=== PATIENT | male | born 1955 | race Caucasian/White ===

== ENCOUNTER 2019-07-31 15:01 | Outpatient (CLI) | payer SELFPAY ==
--- NOTE | 2019-07-31 15:21 | CT_ITS ---
WS: [id number] CT CERVICAL SPINE HISTORY: POST-OPERATIVE STATE TECHNIQUE: Contiguous 2.5 mm axial imaging performed through the entire cervical spine. Sagittal and coronal reformats also performed. All CT scans at [facility] use at least one of these do se optimization techniques: automated exposure control; mA and/or kV adjustment per patient size (inc ludes targeted exams where dose is matched to clinical indication); or iterative reconstruction. DLP: 1369.92 mGycm COMPARISON: 06/14/2019 Prior posterior laminectomy defects at C4-5 and C5-6. Posterior C4-5 fusion hardware. No lucency arou nd the hardware or change in position or fracture. Atlantooccipital junction is normally aligned. Increased soft tissue surrounding the odontoid process is stable. Endplate osteophytes at all levels. 2 mm anterolisthesis of C5. Moderate disc space narro wing at C5-6. C2-C3: LEFT foraminal stenosis due to facet disease. C3-C4: Osteophytic ridging with mild central and LEFT foraminal stenosis and moderate RIGHT foraminal stenosis. C4-C5: Large posterior laminectomy defects. Moderate bilateral foraminal stenosis. C5-C6: Large posterior laminectomy defects. Severe RIGHT foraminal stenosis with moderate LEFT forami nal stenosis. C6-C7: Osteophytic ridging with bilateral foraminal stenosis, moderate. C7-T1: Normal. Calcification in the carotid arteries is unchanged. CT/CT cervical spin wo con* [id number] IMPRESSION: 1. Large laminectomy defects posteriorly at C4-5 and C5-6 with C4-5 posterior fusion. Postoperative changes remain satisfactory with no complications. 2. Multilevel foraminal central stenosis as above. Predominantly due to osteop hyte disease.
== END 2019-07-31 15:02 | disposition home or self-care (01) ==
LOC: RADWPI 15:06
PROVIDERS: Family Provider Family Medicine; PCP Family Medicine; Visit Provider Specialist
DX: Z98.890 Other specified postprocedural states (principal); Z98.1 Arthrodesis status; M48.02 Spinal stenosis, cervical region
CPT/HCPCS: 72125

== ENCOUNTER 2020-05-20 16:34 | Emergency (ER) | payer SELFPAY ==
[2020-05-20 16:37] VITALS: BP 127/73; PULSE 62; RESP 18; TEMP 37.3; O2SAT 98; BMI 20.3
== END 2020-05-20 20:16 | disposition left against medical advice (07) ==
LOC: ER 16:40
PROVIDERS: Emergency Provider Family Medicine; PCP Family Medicine
DX: Z53.21 Procedure and treatment not carried out due to patient leaving prior to being seen by health care provider (principal)
CPT/HCPCS: 99281

== ENCOUNTER 2020-10-28 16:35 | Emergency (ER) | payer SELFPAY ==
[2020-10-28 16:36] VITALS: BP 136/74; PULSE 48; RESP 18; TEMP 36.6; O2SAT 98; BMI 18.8
--- NOTE | 2020-10-28 17:27 | MRR_ITS ---
PROCEDURE INFORMATION: Exam: MR Cervical Spine Without Contrast Exam date and time: 10/28/2020 6:45 PM Age: 65 years old Clinical indication: Neck pain; Prior surgery; Surgery date: 6+ months; Surgery type: Cervical fusion w/ cage; Additional info: Cervical stenosis, hypereflexia ue, loss muscle strength TECHNIQUE: Imaging protocol: Multiplanar magnetic resonance images of the cervical spine without contrast. COMPARISON: MRI Cervical Spine w/wo [id number] 04/03/2019 8:55 AM FINDINGS: Vertebrae: Posterior fusion at C4-C5. No traumatic vertebral body height loss. Spinal cord: Long segment T2 signal hyperintense lesion of the posterior cervical spinal cord in the midline which spans mid body of C2 to the superior margin of T6 which is significantly increased in size from prior. Spinal cord diameter is preserved and unchanged from prior. Spinal epidural space: No fluid collection in the epidural space. C1-C2: No change from prior. C2-C3: Mild posterior disc osteophyte complex stable from prior. No significant canal stenosis. Severe left foraminal stenosis. No significant right foraminal stenosis. C3-C4: Moderate disc height loss. Moderate broad-based posterior disc osteophyte complex. Mild canal stenosis. Moderate bilateral foraminal stenosis. C4-C5: Interval posterior decompression at C4-C5. Posterior decompression and fusion. No disc protrusion or extrusion. No spinal canal stenosis. Neural foramen are distorted by artifact and not well assessed. C5-C6: Mild to moderate disc height loss. Mild severity broad-based posterior disc osteophyte complex. Mild severity bilateral foraminal stenosis. Minimal canal stenosis. C6-C7: Moderate severity disc height loss. Mild severity broad-based posterior disc osteophyte complex. Moderately severe bilateral foraminal stenosis. Very mild spinal canal stenosis. C7-T1: No significant finding. Other bones/joints: No fractures. C4-C5 anterolisthesis visible previously improved after surgery. Mild C5-C6 anterolisthesis unchanged from prior. Soft tissues: Prevertebral soft tissues are unremarkable. No paraspinal fluid collection. Vertebral arteries: Expected flow voids in the vertebral arteries. MR/MR cervical spin wo con* [id number] IMPRESSION: 1. Long cervical spinal cord lesion increased in size from comparison imaging. Nonspecific myelopathy changes. 2. Postsurgical findings of C4-C5 posterior decompression and posterior fusion. 3. Multilevel spondyloarthropathy; details above.
--- NOTE | 2020-10-28 17:27 | MRR_ITS ---
PROCEDURE INFORMATION: Exam: MR Lumbar Spine Without Contrast Exam date and time: 10/28/2020 6:45 PM Age: 65 years old Clinical indication: Low back pain; Patient HX: No known specific injury; Additional info: Fecal incontinence, urinary retention TECHNIQUE: Imaging protocol: Multiplanar magnetic resonance images of the lumbar spine without intravenous contrast. COMPARISON: CT Abdomen/Pelvis Renal [id number] 05/29/2019 9:51:41 PM FINDINGS: Vertebrae: Vertebral body height is preserved. Vertebral signal is unremarkable with the exception of patchy hyperintense T2, hypointense T1 signal changes of L3 and L4 surrounding a severely narrowed, eroded L3-L4 intervertebral disc. Spinal cord: Distal thoracic spinal cord is unremarkable. The cauda equina are bunched up focally at the L3-L4 intervertebral level. L1-L2: Mild facet joint arthritis. Mild bilateral foraminal stenosis. No significant disc disease. L2-L3: Moderate severity facet joint arthropathy. Mild to moderate bilateral foraminal stenosis. No significant disc disease. L3-L4: Severe disc disease. Large broad-based posterior disc bulge. Bulky severe facet joint hypertrophy. Ligamentum flavum thickening. Severe canal stenosis. Severe bilateral foraminal stenosis. L4-L5: Mild disc height loss. Disc desiccation. Mild severity broad-based posterior disc bulge. Moderate bilateral facet joint arthropathy. Ligamentum flavum thickening. Severe left foraminal stenosis. Mild to moderate right foraminal stenosis. L5-S1: Moderate severity facet joint arthropathy. No significant disc disease. No significant canal stenosis. Mild bilateral foraminal stenosis. Soft tissues: Paraspinal soft tissues are unremarkable. Retroperitoneal space: Retroperitoneal soft tissues are unremarkable. MR/MR lumbar spine wo con* [id number] IMPRESSION: 1. Severe chronic disc disease of L3-L4. Disc disease and facet joint arthritis contributes to severe spinal canal stenosis and severe foraminal stenosis at this level. There is bunching up of the cauda equina this level secondary to the stenosis. 2. Additional multilevel spondyloarthropathy changes as detailed above which are less severe.
--- NOTE | 2020-10-28 17:32 | ED_ITS ---
Documented by User: Wale Carl DO 11/01/20 16:00 HPI - Back Pain/Injury General: Chief Complaint: Back Pain/Injury Stated Complaint: L HAND/LEG NUMBNESS, R SIDE PAIN, STATES CHRONIC Time Seen by Provider: 10/28/20 16:56 History of Present Illness: HPI Narrative: 65-year-old male with a history of cervical stenosis he previously had a surgery on his neck sounds like he had a fusion and discectomy. This was approximately a year and a half ago since then he says he still continue to have pain he is noticing today some right-sided flank pain as well as some mid back pain and arm weakness. He is not really having any abdominal pain has legs are very weak he is able to raise them while sitting in the chair. He reports fecal incontinence at times. He uses hydrocodone for pain but that has not been controlling his pain recently. MD elicited complaint: back pain (Neck pain) Pertinent past history: prior back pain (Previous cervical laminectomy and fus ion) Timing: constant Severity: moderate Quality: aching and tingling Location: lumbar spine Radiation: other (Bilateral upper and lower extremities) Associated symptoms: Reports difficulty walking, fatigue, nausea, tingling/numbness/burning and weakness; Deny abdominal pain, arthralgias, chills, change in bowel habits, dysuria, fecal incontinence, fever(s), hematuria, myalgias, numbness, syncope, urinary frequency, urinary urgency or vomiting Work related injury: No Review of Systems Const: Reports: fatigue; Denies: chills ENMT: Denies: throat pain, ear or mastoid pain, nasal discharge or nasal congestion Card: Denies: syncope Resp: Denies: dyspnea, productive cough or non-productive cough GI: Reports: nausea; Denies: abdominal pain, fecal incontinence or change in bowel habits : Denies: dysuria, urinary urgency or hematuria Skin/Breast: Denies: rash or pruritus Neuro: Reports: difficulty walking PFSH ED PFSH: Family History Mother Diabetes Cancer Thyroid and Espohageal Arthritis Social History Smoking and tobacco status: current every day smoker Alcohol intake: never Lives independently: Yes Household members: none Marital status: Legally History of recent travel: No Physical Exam Const: COMMON NORMALS: no acute distress GENERAL APPEARANCE: cooperative and comfortable ORIENTATION/CONSCIOUSNESS: Yes awake, Yes oriented to person, Yes oriented to place and Yes oriented to time HENMT: COMMON NORMALS: normocephalic, atraumatic and hearing grossly normal bilaterally HEAD & SCALP: normocephalic and atraumatic Neck/C-Spine: COMMON NORMALS: no JVD Resp: COMMON NORMALS: normal respiratory effort, No retractions, No use of accessory muscles and clear to auscultation bilaterally AUSCULTATION: clear to auscultation bilaterally Cardio: COMMON NORMALS: no JVD, regular rate, regular rhythm and No murmurs present (Cardio) RATE: regular rate RHYTHM: regular rhythm GI: COMMON NORMALS: Soft to palpation and No hepatosplenomegaly present AUSCULTATION: Yes normoactive bowel sounds PALPATION: Yes Soft to palpation, No Tenderness to palpation present (GI), No Guarding due to palpation present (GI) and Yes No hepatosplenomegaly present Extremity: COMMON NORMALS: normal to inspection, capillary refill normal, no clubbing, cyanosis or edema, no calf tenderness and no pedal edema Neuro: SENSORIUM/ORIENTATION: Yes oriented to person, Yes oriented to place and Yes oriented to time Skin: COMMON NORMALS: no rashes or lesions noted GENERAL SKIN EXAM: no rashes or lesions noted Course Vital Signs: Vital signs: Vital Signs Temperature 97.8 F 10/28/20 16:36 Pulse Rate 50 L 10/28/20 20:23 Respiratory Rate 19 H 10/28/20 20:23 Blood Pressure 136/74 10/28/20 16:36 Pulse Oximetry 97 10/28/20 20:23 MDM - Back Pain/Injury MDM Narrative: Medical decision making narrative: Care turned over to Dr. Sharif at change of shift. See his notes for final diagnosis and disposition MRIs are pending. Lab Data: Labs: Lab Results 10/28/20 10/28/20 10/28/20 Range/Units 16:56 16:56 18:23 WBC 11.4 H (4.0-10.0) 10^3/ uL RBC 4.51 (4.1-5.3) 10^6/u L Hgb 14.2 (11.7-16.6) g/dL Hct 42.0 (42.0-52.0) % MCV 93.1 (80-94) fL MCH 31.5 (28.0-34.0) pg MCHC 33.8 (30.0-36.0) g/dL RDW 12.3 (12.1-15.1) % Plt Count 310 (130-400) 10^3/c mm MPV 9.7 (7.4-10.4) fL Neut % (Auto) 48.4 % Lymph % (Auto) 42.6 % Gage % (Auto) 5.7 % Eos % (Auto) 2.5 % Baso % (Auto) 0.6 % Neut # (Auto) 5.51 (1.8-7.7) 10^3/u L Lymph # (Auto) 4.9 H (0.8-4.8) 10^3/u L Gage # (Auto) 0.7 (0.2-0.9) 10^3/u L Eos # (Auto) 0.3 (0.0-0.8) 10^3/u L Baso # (Auto) 0.1 (0.0-0.1) 10^3/u L Nucleated RBC % (a uto) 0 % Nucleated RBCs # 0.0 /100WBC Sodium 138 (136-145) mmol/L Potassium 3.4 L (3.5-5.1) mmol/L Chloride 98 (98-107) mmol/L Carbon Dioxide 30 H (22-29) mmol/L Anion Gap 13.4 (5-19) BUN 3 L (8-23) mg/dL Creatinine 0.6 L (0.7-1.2) mg/dL GFR Calculation 136.1 H (90-130) mL/min Glucose 117 H (65-115) mg/dL Calculated Osmolal ity 284 L (285-295) mOsm/k g Calcium 8.6 (8.5-10.5) mg/dL Total Bilirubin 0.4 (0.15-1.2) mg/dL AST 17 (0-40) U/L ALT 11 (0-41) U/L Alkaline Phosphata se 86 (40-130) IU/L Total Protein 6.3 L (6.6-8.7) g/dL Albumin 3.9 (3.5-5.2) g/dL Globulin 2.4 (1.3-4.6) g/dL Urine Color Straw (Yellow) Urine Appearance Clear (CLEAR) Urine pH 7 (5-7) Ur Specific Gravit y 1.010 (1.005-1.030) Urine Protein Neg (Negative) Urine Glucose (UA) Norm (Normal) Urine Ketones Negative (Negative) Urine Blood Neg (Negative) Urine Nitrate Negative (Negative) Urine Bilirubin Neg (Negative) Urine Urobilinogen Norm (Negative) mg/dL Ur Leukocyte Judith ase Negative (Negative) SARS-CoV-2 Ag (Rap id) (Negative) 10/28/20 Range/Units 21:15 WBC (4.0-10.0) 10^3/ uL RBC (4.1-5.3) 10^6/u L Hgb (11.7-16.6) g/dL Hct (42.0-52.0) % MCV (80-94) fL MCH (28.0-34.0) pg MCHC (30.0-36.0) g/dL RDW (12.1-15.1) % Plt Count (130-400) 10^3/c mm MPV (7.4-10.4) fL Neut % (Auto) % Lymph % (Auto) % Gage % (Auto) % Eos % (Auto) % Baso % (Auto) % Neut # (Auto) (1.8-7.7) 10^3/u L Lymph # (Auto) (0.8-4.8) 10^3/u L Gage # (Auto) (0.2-0.9) 10^3/u L Eos # (Auto) (0.0-0.8) 10^3/u L Baso # (Auto) (0.0-0.1) 10^3/u L Nucleated RBC % (a uto) % Nucleated RBCs # /100WBC Sodium (136-145) mmol/L Potassium (3.5-5.1) mmol/L Chloride (98-107) mmol/L Carbon Dioxide (22-29) mmol/L Anion Gap (5-19) BUN (8-23) mg/dL Creatinine (0.7-1.2) mg/dL GFR Calculation (90-130) mL/min Glucose (65-115) mg/dL Calculated Osmolal ity (285-295) mOsm/k g Calcium (8.5-10.5) mg/dL Total Bilirubin (0.15-1.2) mg/dL AST (0-40) U/L ALT (0-41) U/L Alkaline Phosphata se (40-130) IU/L Total Protein (6.6-8.7) g/dL Albumin (3.5-5.2) g/dL Globulin (1.3-4.6) g/dL Urine Color (Yellow) Urine Appearance (CLEAR) Urine pH (5-7) Ur Specific Gravit y (1.005-1.030) Urine Protein (Negative) Urine Glucose (UA) (Normal) Urine Ketones (Negative) Urine Blood (Negative) Urine Nitrate (Negative) Urine Bilirubin (Negative) Urine Urobilinogen (Negative) mg/dL Ur Leukocyte Judith ase (Negative) SARS-CoV-2 Ag (Rap id) Negative (Negative) Discharge Plan Discharge Patient Disposition: Home Clinical Impression: Incomplete spinal cord lesion Thoracic back pain Qualifiers: Chronicity: chronic Condition: Stable Prescriptions: New Reglan 10 mg tablet 10 mg PO Q6H PRN (Reason: nausea and vomiting) Qty: 20 RF: 2 diclofenac sodium 75 mg tablet,delayed release (DR/EC) 75 mg PO BID PRN (Reason: pain) Qty: 14 RF: 1 No Action Aspir-81 81 mg Tablet,Delayed Release (Dr/Ec) 81 mg PO DAILY RF: 0 ibuprofen 200 mg Tablet 400 mg PO PRN RF: 0 omeprazole 20 mg Capsule,Delayed Release(Dr/Ec) 20 mg PO DAILY RF: 0 Fish Oil Capsule 1 cap PO BID RF: 0 red yeast rice 600 mg Tablet 600 mg PO BID RF: 0 Emergen-C 500 mg Tablet,Chewable 1 tab PO DAILY RF: 0 Philip See Rx Instructions .ROUTE .COMPLEX RF: 0 Discharge Orders: Discharge ED (Routine); Ordered 10/28/20 Ordered By: Nelson Sharif Referrals: Marquise Hale DO [Physician] - 1-3 days (call for appointment time to follow up spinal cord lesion. If unable to see him, follow up with Dr. Hester at [facility].) Discharge Diet: Usual diet Discharge Activity: Resume usual activity Patient Instructions: Opioid Safety Coding Level of Care Code ED [place] for Chg Fwd Exam Comprehensive Documented by User: Nelson Sharif MD 10/28/20 22:23 HPI - Back Pain/Injury General: Chief Complaint: Back Pain/Injury Stated Complaint: L HAND/LEG NUMBNESS, R SIDE PAIN, STATES CHRONIC Time Seen by Provider: 10/28/20 16:56 History of Present Illness: Associated symptoms: Reports change in bowel habits and fecal incontinence; Deny abdominal pain Review of Systems Eyes: Denies: change in vision ENMT: Denies: throat pain Card: Denies: chest pain Resp: Denies: dyspnea GI: Reports: fecal incontinence and change in bowel habits; Denies: abdominal pain : Reports: flank pain and urinary incontinence Musc: Reports: neck pain, back pain, muscle weakness and decrease in muscle mass Skin/Breast: Denies: rash Neuro: Reports: weakness in extremities Psych: Denies: anxiety Herbert/Lymph: Denies: easy bruising or tender lymph nodes All/Imm: Denies: urticaria or throat swelling PFSH ED PFSH: Family History Mother Diabetes Cancer Thyroid and Espohageal Arthritis Social History Smoking and tobacco status: current every day smoker Alcohol intake: never Lives independently: Yes Household members: none Marital status: Legally History of recent travel: No Physical Exam Narrative: EXAM NARRATIVE: upper extrem weakness Const: COMMON NORMALS: no acute distress, patient oriented x3 and alert EXAM LIMITATIONS: no altered mental status ORIENTATION/CONSCIOUSNESS: Yes oriented to person HENMT: FACE & SINUS: normal facial exam THROAT: posterior oropharynx normal Eye: COMMON NORMALS: Equal, round and reactive pupils present PUPIL: Yes Equal, round and reactive pupils present Neck/C-Spine: COMMON NORMALS: negative for no lymphadenopathy Lymph: LYMPHATIC: no lymphadenopathy noted Chest: COMMONS NORMALS: normal inspection of the chest Resp: COMMON NORMALS: normal respiratory effort GI: INSPECTION: Yes normal to inspection Back/Pelvis: THORACIC SPINE/UPPER BACK: Yes normal to inspection Extremity: NARRATIVE EXTREMITY EXAM: atrophy Neuro: COMMON NORMALS: patient oriented x3 SENSORIUM/ORIENTATION: Yes alert, Yes oriented to person and Yes other (atrophy and contractures to upper extems bilat) Psych: COMMON NORMALS: mental status grossly normal Skin: COMMON NORMALS: no rashes or lesions noted GENERAL SKIN EXAM: no rashes or lesions noted Course Vital Signs: Vital signs: Vital Signs Temperature 97.8 F 10/28/20 16:36 Pulse Rate 50 L 10/28/20 20:23 Respiratory Rate 19 H 10/28/20 20:23 Blood Pressure 136/74 10/28/20 16:36 Pulse Oximetry 97 10/28/20 20:23 MDM - Back Pain/Injury MDM Narrative: Medical decision making narrative: I reviewed the case with the patient. I have also reviewed his MRI with him. I encouraged the patient to follow-up with neurosurgery as soon as possible. I offered patient to be transferred to [place] for evaluation tonight. However, patient declined transfer tonight and wants to follow-up in the clinic. I expressed my concern that this needs to be done soon as possible. I have paged on-call neurosurgery at [place]. Await their return follow-up instructions. 2135: d/w neurosurgeon dr. hester at [facility] in [place] . He suggested that patient follow-up with Dr. Hale at this hospital. He states the patient does not need to be transferred to [place] at this time. He states this is a non emergent condition that can be taken care of as an outpatient at this hospital I have discussed this with the patient and case management will arrange follow-up with Dr. Hale tomorrow. Differential Diagnosis: Differential diagnosis back pain/injury: Likely lumbar radiculopathy and sciatica Medical Records: Attestation: I reviewed the patient's medical records. Lab Data: Attestation: I reviewed the patient's lab results. Labs: Lab Results 10/28/20 10/28/20 10/28/20 Range/Units 16:56 16:56 18:23 WBC 11.4 H (4.0-10.0) 10^3/ uL RBC 4.51 (4.1-5.3) 10^6/u L Hgb 14.2 (11.7-16.6) g/dL Hct 42.0 (42.0-52.0) % MCV 93.1 (80-94) fL MCH 31.5 (28.0-34.0) pg MCHC 33.8 (30.0-36.0) g/dL RDW 12.3 (12.1-15.1) % Plt Count 310 (130-400) 10^3/c mm MPV 9.7 (7.4-10.4) fL Neut % (Auto) 48.4 % Lymph % (Auto) 42.6 % Gage % (Auto) 5.7 % Eos % (Auto) 2.5 % Baso % (Auto) 0.6 % Neut # (Auto) 5.51 (1.8-7.7) 10^3/u L Lymph # (Auto) 4.9 H (0.8-4.8) 10^3/u L Gage # (Auto) 0.7 (0.2-0.9) 10^3/u L Eos # (Auto) 0.3 (0.0-0.8) 10^3/u L Baso # (Auto) 0.1 (0.0-0.1) 10^3/u L Nucleated RBC % (a uto) 0 % Nucleated RBCs # 0.0 /100WBC Sodium 138 (136-145) mmol/L Potassium 3.4 L (3.5-5.1) mmol/L Chloride 98 (98-107) mmol/L Carbon Dioxide 30 H (22-29) mmol/L Anion Gap 13.4 (5-19) BUN 3 L (8-23) mg/dL Creatinine 0.6 L (0.7-1.2) mg/dL GFR Calculation 136.1 H (90-130) mL/min Glucose 117 H (65-115) mg/dL Calculated Osmolal ity 284 L (285-295) mOsm/k g Calcium 8.6 (8.5-10.5) mg/dL Total Bilirubin 0.4 (0.15-1.2) mg/dL AST 17 (0-40) U/L ALT 11 (0-41) U/L Alkaline Phosphata se 86 (40-130) IU/L Total Protein 6.3 L (6.6-8.7) g/dL Albumin 3.9 (3.5-5.2) g/dL Globulin 2.4 (1.3-4.6) g/dL Urine Color Straw (Yellow) Urine Appearance Clear (CLEAR) Urine pH 7 (5-7) Ur Specific Gravit y 1.010 (1.005-1.030) Urine Protein Neg (Negative) Urine Glucose (UA) Norm (Normal) Urine Ketones Negative (Negative) Urine Blood Neg (Negative) Urine Nitrate Negative (Negative) Urine Bilirubin Neg (Negative) Urine Urobilinogen Norm (Negative) mg/dL Ur Leukocyte Judith ase Negative (Negative) SARS-CoV-2 Ag (Rap id) (Negative) 10/28/20 Range/Units 21:15 WBC (4.0-10.0) 10^3/ uL RBC (4.1-5.3) 10^6/u L Hgb (11.7-16.6) g/dL Hct (42.0-52.0) % MCV (80-94) fL MCH (28.0-34.0) pg MCHC (30.0-36.0) g/dL RDW (12.1-15.1) % Plt Count (130-400) 10^3/c mm MPV (7.4-10.4) fL Neut % (Auto) % Lymph % (Auto) % Gage % (Auto) % Eos % (Auto) % Baso % (Auto) % Neut # (Auto) (1.8-7.7) 10^3/u L Lymph # (Auto) (0.8-4.8) 10^3/u L Gage # (Auto) (0.2-0.9) 10^3/u L Eos # (Auto) (0.0-0.8) 10^3/u L Baso # (Auto) (0.0-0.1) 10^3/u L Nucleated RBC % (a uto) % Nucleated RBCs # /100WBC Sodium (136-145) mmol/L Potassium (3.5-5.1) mmol/L Chloride (98-107) mmol/L Carbon Dioxide (22-29) mmol/L Anion Gap (5-19) BUN (8-23) mg/dL Creatinine (0.7-1.2) mg/dL GFR Calculation (90-130) mL/min Glucose (65-115) mg/dL Calculated Osmolal ity (285-295) mOsm/k g Calcium (8.5-10.5) mg/dL Total Bilirubin (0.15-1.2) mg/dL AST (0-40) U/L ALT (0-41) U/L Alkaline Phosphata se (40-130) IU/L Total Protein (6.6-8.7) g/dL Albumin (3.5-5.2) g/dL Globulin (1.3-4.6) g/dL Urine Color (Yellow) Urine Appearance (CLEAR) Urine pH (5-7) Ur Specific Gravit y (1.005-1.030) Urine Protein (Negative) Urine Glucose (UA) (Normal) Urine Ketones (Negative) Urine Blood (Negative) Urine Nitrate (Negative) Urine Bilirubin (Negative) Urine Urobilinogen (Negative) mg/dL Ur Leukocyte Judith ase (Negative) SARS-CoV-2 Ag (Rap id) Negative (Negative) Imaging Data^: Other Imaging: Radiologist's impression: [place] [address] CT Scan Report Signed Patient: Bowen Diaz #: [id number] : 8Acct#:[id number] Age/Sex: 63 / MADM Date: 07/31/19 Loc: RADWPIRoom/Bed: Attending Dr: Markos Arteaga MD Ordering Provider/Ordering MD: Markos Arteaga Date of Service: 07/31/19 Procedure(s): CT cervical spin wo con* [id number] Accession Number(s): [id number] Report Number: [id number] WS: [id number] CT CERVICAL SPINE HISTORY: POST-OPERATIVE STATE TECHNIQUE: Contiguous 2.5 mm axial imaging performed through the entire cervical spine. Sagittal and coronal reformats also performed. All CT scans at [facility] use at least one of these dose optimization techniques: automated exposure control; mA and/or kV adjustment per patient size (includes targeted exams where dose is matched to clinical indication); or iterative reconstruction. DLP: 1369.92 mGycm COMPARISON: 06/14/2019 Prior posterior laminectomy defects at C4-5 and C5-6. Posterior C4-5 fusion h ardware. No lucency around the hardware or change in position or fracture. Atlantooccipital junction is normally aligned. Increased soft tissue surrounding the odontoid process is stable. Endplate osteophytes at all levels. 2 mm anterolisthesis of C5. Moderate disc space narrowing at C5-6. C2-C3: LEFT foraminal stenosis due to facet disease. C3-C4: Osteophytic ridging with mild central and LEFT foraminal stenosis and moderate RIGHT foraminal stenosis. C4-C5: Large posterior laminectomy defects. Moderate bilateral foraminal stenosis. C5-C6: Large posterior laminectomy defects. Severe RIGHT foraminal stenosis with moderate LEFT foraminal stenosis. C6-C7: Osteophytic ridging with bilateral foraminal stenosis, moderate. C7-T1: Normal. Calcification in the carotid arteries is unchanged. CT/CT cervical spin wo con* [id number] IMPRESSION: 1. Large laminectomy defects posteriorly at C4-5 and C5-6 with C4-5 posterior fusion. Postoperative changes remain satisfactory with no complications. 2. Multilevel foraminal central stenosis as above. Predominantly due to osteophyte disease. Dictated By:Samantha Martin DO Signed By:Samantha Martin DOSigned Date/Time:07/31/19 5762 MRI: Attestation: I personally reviewed and interpreted this imaging study as follows: Radiologist's impression: -m-r-i- -o-f- -w-m-g-i-n-e-:- - - -l-o-n-g- -k-f-e-v-i-c-a-l- -f-v-m-n-a-l- -c-o-r-d- -o-p-r-i-o-n- -g-y-n-u-a-r-s-e-d- -i-n- -s-i-z-e- -f-r-o-m- -h-a-u-e-m-f-i-s-o-n- -s-w-b-g-i-n-g-.- -j-f-p-b-r-v-c-i-f-i-c- -j-r-z-b-u-b-a-t-h-y- -h-e-y-n-g-e-s-.-.- - - -p-o-s-t- -z-v-s-g-i-c-a-l- -t-d-d-d-i-n-g-s- -o-f- -c-4----5- -m-g-u-d-s-f-i-o-r- -w-h-v-c-q-o-n-q-t-s-i-o-n- -a-n-d- -r-t-i-b-x-j-i-o--r- -t-h-d-i-o-n-.- - - -n-j-h-v-z-j-e-v-e-l- -v-v-l-y-k-c-v-d-w-c-s-w-x-a-g-a-t-h-y-.- - - -s-e-e- -t-b-x-o-r-t-.- -M-R-I- -f-l-x-o-r-t- -I-a-o-r-k-s- -J-r-t-k-u-l-c-a-r-e- -1-1-0-0- -S-h-i-t-u-c-k-y- -A-v-e-.- -W-e-s-t- -K-t-e-i-n-s-,- -M-O- -6-5-7-7-5- -J-h-x-n-e-t-i-c- -Q-q-q-r-g-k-n-c-e- -Y-z-o-o-r-t- -J-p-r-n-e-d- -V-q-v-i-e-n-t-:- -T-i-j-l-t-o-n-,-R-x-b-u-e-l- -D-U-n-i-t- -#-:- -O-M-0-0- -9-7-2-9-5-9- -D-O-B-:- -0-1-/-2-6-/-9-1-3-8-A-c-c-t-#-:-W-D-9-2-6-3-6-0-4-5-2-3- -A-g-e-/-S-e-x-:- -6-3- -/- -M-A-D-M- -D-a-t-e-:- -0-4-/-1-9-/-2-1- -L-o-c-:- -G-A-X-o-o-m-/-B-e-d-:- -V-z-m-q-d-y-i-n-g- -D-r-:- -R-r-g-e-r-i-n-g- -G-w-r-v-i-d-e-r-/-T-j-d-e-r-i-n-g- -M-D-:- -R-n-t-s-t-m-a-n-,-S-u-a-t-i-s- -L- -D-O- -D-a-t-e- -o-f- -W-n-u-v-i-c-e-:- -0-4-/-1-9-/-2-1- -I-l-s-f-i-r-u-r-e-(-s-)-:- -M-R- -l-n-m-b-a-r- -s-p-i-n-e- -w-o- -c-o-n-*- -7-2-1-4-8- -T-n-d-n-j-g-i-o-n- -S-b-l-b-e-r-(-s-)-:- -D-7-1-2-8-0-4-8-6-3-3-O-Z-A- -W-x-j-o-r-t- -X-o-c-b-e-r-:- -3-9-0-9----0-0-2-8-3- -W-L-U-O-S-B-U-R-E- -E-M-E-T-Q-G-A-T-I-O-N-:- -E-x-a-m-:- -M-R- -T-q-a-b-a-r- -S-p-i-n-e- -T-l-o-h-o-u-t- -M-c-h-t-r-a-s-t- -E-x-a-m- -d-a-t-e- -a-n-d- -t-i-m-e-:- -4-/-1-9-/-2-0-2-1- -6-:-4-5- -P-M- -A-g-e-:- -6-3- -y-e-a-r-s- -o-l-d- -L-l-e-n-i-c-a-l- -r-i-n-s-s-m-t-i-o-n-:- -L-o-w- -b-a-c-k- -p-a-i-n-;- -Y-e-x-i-e-n-t- -H-X-:- -N-o- -k-n-o-w-n- -y-k-f-c-i-f-i-c- -f-a-q-u-r-y-;- -K-u-e-a-j-j-o-n-a-l- -i-n-f-o-:- -F-e-c-a-l- -g-h-c-b-f-v-x-i-i-n-c-e-,- -x-s-b-n-a-r-y- -l-n-u-q-y-c-i-o-n- -I-D-K-Q-R-K-Q-U-E-:- -A-k-u-g-i-n-g- -o-n-y-t-o-c-o-l-:- -Q-a-b-d-h-f-l-a-n-a-r- -e-j-g-n-e-t-i-c- -z-q-y-d-k-n-n-c-e- -f-j-r-g-e-s- -o-f- -t-h-e- -p-v-x-b-a-r- -s-p-i-n-e- -f-q-h-h-o-u-t- -r-w-l-c-f-w-e-n-o-u-s- -d-a-y-t-r-a-s-t-.- -O-Q-R-K-H-U-I-S-O-N-:- -C-T- -X-g-u-o-m-e-n-/-D-b-w-v-i-s- -R-e-n-a-l- -7-4-1-7-6- -1-1-/-1-8-/-2-0-1-9- -9-:-5-1-:-4-1- -P-M- -L-C-V-D-I-N-G-S-:- -B-a-f-t-u-q-r-a-e-:- -G-m-p-b-l-i-r-a-l- -b-o-d-y- -o-y-t-g-h-t- -i-s- -w-b-j-u-v-c-v-e-d-.- -A-b-l-m-v-e-r-a-l- -q-g-w-n-a-l- -i-s- -e-f-q-p-h-h-c-r-l-b-l-e- -w-i-t-h- -t-h-e- -f-a-h-s-i-v-i-o-n- -o-f- -h-j-j-c-h-y- -u-u-v-r-a-c-e-v-d-n-s-e- -T-2-,- -c-r-s-r-v-c-t-e-n-s-e- -T-1- -m-w-g-n-a-l- -l-p-m-n-g-e-s- -o-f- -L-3- -a-n-d- -L-4- -u-o-g-i-l-o-n-d-i-n-g- -a- -i-n-q-e-r-e-l-y- -t-j-h-r-o-w-e-d-,- -j-z-j-d-e-d- -L-3----L-4- -i-n-s-f-y-r-d-c-g-e-b-r-a-l- -d-i-s-c-.- -U-d-b-n-a-l- -c-o-r-d-:- -B-v-u-t-a-l- -l-c-c-r-a-c-i-c- -s--p-i-n-a-l- -c-o-r-d- -i-s- -h-c-m-u-g-h-z-f-n-b-l-e-.- -T-h-e- -c-a-u-d-a- -q-b-v-i-n-a- -a-r-e- -c-s-d-c-h-e-d- -u-p- -t-v-i-a-l-l-y- -a-t- -t-h-e- -L-3----L-4- -n-g-y-h-b-v-z-y-m-e-b-r-a-l- -l-e-v-e-l-.- -L-1----L-2-:- -M-i-l-d- -f-a-c-e-t- -j-o-i-n-t- -a-b-m-v-m-w-t-i-s-.- -M-i-l-d- -z-t-c-l-c-a-r-a-l- -w-y-x-y-d-e-n-a-l- -z-q-o-n-o-s-i-s-.- -N-o- -s-p-u-a-g-p-i-c-a-n-t- -d-i-s-c- -h-r-g-e-a-s-e--.- -L-2----L-3-:- -E-r-o-e-r-a-t-e- -q-s-u-e-r-i-t-y- -f-a-c-e-t- -j-o-i-n-t- -l-o-l-f-y-h-p-a-t-h-y-.- -M-i-l-d- -t-o- -l-e-p-e-r-a-t-e- -k-x-y-p-w-l-r-a-l- -d-o-x-p-c-w-n-a-l- -m-r-i-n-o-s-i-s-.- -N-o- -t-p-y-o-f-c-i-c-a-n-t- -d-i-s-c- -j-e-g-e-a-s-e-.- -L-3----L-4-:- -M-k-l-e-r-e- -d-i-s-c- -a-f-q-e-a-s-e-.- -L-a-r-g-e- -b-q-z-a-d----b-a-s-e-d- -v-p-i-g-q-y-i-o-r- -d-i-s-c- -b-u-l-g-e-.- -B-u-l-k- -y- -b-a-f-e-r-e- -f-a-c-e-t- -j-o-i-n-t- -j-w-z-f-i-s-r-o-p-h-y-.- -P-g-y-f-q-n-n-t-u-m- -s-f-d-v-u-m- -u-f-c-p-s-v-n-i-n-g-.- -J-u-w-e-r-e- -c-a-n-a-l- -q-l-f-n-o-s-i-s-.- -P-g-e-e-r-e- -m-t-c-j-v-c-r-a-l- -q-g-d-h-m-x-n-a-l- -e-v-p-n-o-s-i-s-.- -L-4----L-5-:- -M-i-l-d- -d-i-s-c- -r-b-k-g-h-t- -l-o-s-s-.- -D-i-s-c- -c-t-g-g-n-y-a-t-i-o-n-.- -M-i-l-d- -b-f-n-e-r-i-t-y- -l-z-v-a-d----b-a-s-e-d- -p-o--u-e-x-r-i-o-r- -d-i-s-c- -b-u-l-g-e-.- -W-m-h-e-r-a-t-e- -k-m-y-g-f-g-r-a-l- -f-a-c-e-t- -j-o-i-n-t- -c-n-j-t-c-r-p-a-t-h-y-.- -D-p-i-q-n-e-n-t-u-m- -l-m-r-v-u-m- -x-a-p-x-j-v-n-i-n-g-.- -L-a-h-e-r-e- -l-e-f-t- -m-s-n-l-h-k-n-a-l- -m-x-d-n-o-s-i-s-.- -M-i-l-d- -t-o- -o-x-x-e-r-a-t-e- -r-i-g-h-t- -c-n-e-b-y-w-n-a-l- -a-f-x-n-o-s-i-s-.- -L-5----S-1-:- -L-i-h-e-r-a-t-e- -g-z-u-e-r-i-t-y- -f-a-c-e-t- -j-o-i-n-t- -p-v-b-q-l-j-p-a-t-h-y-.- -N-o- -x-y-r-e-u-q-i-c-a-n-t- -d-i-s-c- -m-e-k-e-a-s-e-.- -N-o- -u-b-f-t-y-j-i-c-a-n-t- -c-a-n-a-l- -z-c-l-n-o-s-i-s-.- -M-i-l-d- -i-t-c-b-w-w-r-a-l- -u-p-p-b-q-q-n-a-l- -h-p-k-n-o-s-i-s-.- -S-o-f-t- -q-b-p-s-u-e-s-:- -B-z-h-i-r-f-i-n-a-l- -s-o-f-t- -f-m-i-s-u-e-s- -a-r-e- -r-k-r-p-o-b-j-f-o-b-l-e-.- -D-z-m-b-d-o-z-v-v-m-o-n-e-a-l- -s-p-a-c-e-:- -K-i-j-q-n-f--w-a-m-u-t-y-e-a-l- -s-o-f-t- -g-y-h-s-u-e-s- -a-r-e- -e-a-e-b-t-x-s-o-x-b-l-e-.- -W-S-U-K-V-R-I-O-N- -#-:- -B-6-6-2-6-9-8-5-7-3-3-O-Z-A- -M-R-/-M-R- -x-e-d-b-a-r- -s-p-i-n-e- -w-o- -c-o-n-*- -7-2-1-4-8- -N-F-M-X-T-M-S-I-O-N-:- -1-.- -E-m-x-e-r-e- -x-o-s-o-n-i-c- -d-i-s-c- -r-k-l-e-a-s-e- -o-f- -L-3--- -L-4-.- -D-i-s-c- -i-k-y-e-a-s-e- -a-n-d- -f-a-c-e-t- -j-o-i-n-t- -v-n-c-k-f-e-t-i-s- -o-h-k-t--y-k-i-u-t-e-s- -t-o- -v-g-n-e-r-e- -w-f-v-n-a-l- -c-a-n-a-l- -e-i-q-n-o-s-i-s- -a-n-d- -i-p-x-e-r-e- -s-o-p-g-r-y-n-a-l- -e-n-e-n-o-s-i-s- -a-t- -t-h-i-s- -l-e-v-e-l-.- -T-h-e-r-e- -i-s- -r-a-m-c-h-i-n-g- -u-p- -o-f- -t-h-e- -c-a-u-d-a- -i-t-y-i-n-a- -t-h-i-s- -l-e-v-e-l- -e-o-s-z-c-c-a-r-y- -t-o- -t-h-e- -k-m-b-n-o-s-i-s-.- -2-.- -X-n-h-p-z-f-o-n-a-l- -o-q-g-p-l-d-e-v-e-l- -p-w-o-i-g-b-l-o-a-r-t- -k-j-r-p-a-t-h-y- -a-c-d-n-g-e-s- -a-s- -f-l-r-a-i-l-e-d- -a-b-o-v-e- -w-h-i-c-h- -a-r-e- -l-e-s-s- -t-i-u-e-r-e-.- -U-a-u-t-a-t-e-d- -B-y-:-F-r-a-m-e-,-K-e-v-i-n- -V-e-e-n-e-d- -B-y-:-F-r-a-m-e-,-S-f-n-s-w-E-i-g-n-e-d- -D-a-t-e-/-T-i-m-e-:-0-4-/-1-9-/-2-1- -2-0-9- -C-h-a-r-t- -D-y-s-w-e-r- -V-b-k-m-a-r-y- -B-a-m-g-e-t- -d-a-t-a- -f-o-r- -0-4-/-1-9-/-2-1- -(-R-E-G- -E-R-)- -N-o- -D-a-t-a- -t-o- -V-f-d-p-l-a-y- -C-l-z-t-e-d- -E-h-a-h-l-d-i-n-t- -L- -H-A-N-D-/-L-E-G- -S-K-Y-B-N-E-S-S-,- -R- -S-I-D-E- -P-A-I-N-,- -H-N-O-T-E-S- -B-O-G-O-N-I-C- -C-h-i-e-f- -W-j-u-k-p-d-i-n-t- -B-a-c-k- -P-a-i-n-/-Y-j-d-u-r-y- -C-g-g-l-y-c-i-o-n- -E-s-n-i-v-a-l- -D-a-t-e-/-T-i-m-e- -0-4-/-1-9-/-2-1- -1-6-:-3-5- -L-l-t-i-v-a-l- -M-o-d-e- -M-q-n-k----I-n- -H-h-i-a-g-e-d- -A-t- -0-4-/-1-9-/-2--1- -1-6-:-3-6- -E-D- -Q-o-n-a-t-i-o-n- -E-k-a-j-n-l-n-c-y- -X-m-o-l-s-c-m-e-n-t- -A-r-e-a-/-S-m-g-t-i-o-n- -E-D- -1-2- -R-o-t-t-i-o-n- -1- -P-q-b-t-e-d- -D-k-g-b-x-z-i-n-t- -L- -H-A-N-D-/-L-E-G- -P-Y-P-B-N-E-S-S-,- -R- -S-I-D-E- -P-A-I-N-,- -E-B-A-T-E-S- -K-B-N-O-N-I-C- -C-h-i-e-f- -E-j-v-y-h-t-i-n-t- -B-a-c-k- -P-a-i-n-/-I-o-f-u-r-y- -N-f-r-a-s-i-v-e- -L-i-n-e- -D-e-r-s-r-c-n-a-n-c-e- -0-4-/-1-9--/-2-1- -2-0-:-2-3- -V-i-t-a-l- -S-i-g-n-s- -0-4-/--9-/-2-1- -2-0-:-2-3- -A-d-u-i-e-n-t- -C-i-r-e-t-y- -C-h-e-c-k- -0-4-/-1-9-/-2-1- -2-0-:-0-2- -D-w-v-m-k-f-e-n-t- -R-i-s-k- -Q-p-o-u-r-d-m-e-n-t- -0-4-/--9-/-2-1- -2-0-:-0-2- -F-u-b-h-r-a-s-i-o-n- -N-z-v-i-n-g- -T-o-o-l- -0-4-/-1-9-/-2-1- -2-0-:-0-2- -P-a-i-n- -T-w-t-b-m-r-h-m-h-e-n-t- -0-4-/-1-9-/-2-1- -2-0-:-0-1- -E-D- -T-m-h-i-e-n-t- -B-v-t-n--d-i-n-g- -0-4-/-1-9-/-2- -2-0-:-0-1- -I-V- -I-b-o-u-v-h-i-o-n- -0-4-/--9-/-08-12- -7-:-0-0- -K-d-g-i-e-n-t- -M-w-w-z-p-l-i-n-g-s- -0-4-/-9/-08-12- -7-:-0-0- -E-D- -B-a-c-k- -P-a-i-n-/-Y-y-x-u-r-y- -U-d-v-k-f-a-m-e-n-t- -0-4-/-9-/-2- -1-7-:-0-0- -H-p-t-s-i-s- -H-u-c-e-s-k-i-n-g- -0-4-/-9-/- -1-6-:-3-6- -T-e-y-c-i-d-e- -R-i-s-k- -A-r-r-f-m-h-m-e-n-t- -0-4-/-1-9-/-2- -1-6-:-3-6- -F--a-l-l- -R-i-s-k- -Q-x-f-k-d-c-m-e-n-t- -0-4-/-1-9-/-08-12- -1-6-:-3-6- -N-r-j-t-i-a-l- -P-a-i-n- -L-s-w-l-n-k-m-e-n-t- -0-4-/-1-9-/-2-1- -1-6-:-3-6- -E-D- -U-t-j-a-g-e- -B-j-l-n-x-m-m-e-n-t- -0-4-/-1-9-/-2-1- -1-6-:-3-6- -E-D- -V-i-t-a-l- -S-i-g-n-s- -w-i-t-h- -K-a-i-s-i-s- -0-4-/-1-9-/-21- -1-6-:-3-6- -D-A-T-E- -A-O-U-A-T-I-O-N-/- -I-T-E-V-I-D-E-R- -U-C-S-B-L-E-M- -0-4-/-1-9-/-2-1- -Z-d-t-r-c-h-n--c-y- -R-o-o-m- -B-o-w-h-i-p-l-d-i-,-B-y-r-o-n- -T-,- -M-D- -B-a-c-k- -P-a-i-n-/-M-q-e-u-r-y- -1-1-/-0-9-/-2-0- -K-o-y-u-w-w-n-c-y- -R-o-o-m- -Z-f-y-s-t-m-a-n-,-A-c-k-t-i-s- -L-,- -D-O- -M-y-o-z-s-m-u-r-e- -a-n-d- -d-r-w-k-e-t-e-n-t- -n-o-t- -p-b-w-r-i-e-d- -o-u-t- -d-u-e- -t-o- -p-l-o-i-e-n-t- -h-i-i-v-i-n-g- -p-r-i-o-r- -t-o- -b-e-i-n-g- -s-e-e-n- -b-y- -v-z-k-l-t-h- -c-a-r-e- -f-u-j-v-i-d-e-r- -W-y-k-d-j-u-m-e-n-t- -B-Z-F-A-B-L-E-D- -M-V-J-A-B-L-E-D- -A-d-c-a-b-l-e-d- -S-s-f-t-a-l- -N-o-t- -D-a-l-o-l-l-e-d- -E-y-o-r-r-q-r-e-d- -P-h-o-n-e- -(-4-1-7-)-8-4-7----9-8-8-8- -I-d-q-r-e-s-s- -1-0-6-1-4- -S- -H-w-y- -6-3- -W-e-s-t- -F-t-n-i-n-s-,- -M-O- -6-5-7-7-5- -N-e-x-t- -o-f- -K-i-n- -Z-j-b-s-o-n- -t-o- -I-m-u-i-f-y- -M-X-T-U-L-Z-,- -F-S-T-A-N-T-H-A- -(-Z-v-d-g-h-t-e-r-)- -(-4-1-7-)-9-6-5---0--6-6-3- -F-i-o-m-a-r-y- -Z-e-a-c-l-p-n-c-e- -S-E-L-F- -P-A-Y- -B-t-m-m-a-r-t- -D-f-h-r-m-a-c-y- -1-5- -(-M-s-h-r-a-q-r-e-d-)- -N-o- -D-a-t-a- -t-o- -E-k-t-p-l-a-y- -N-o- -D-a-t-a- -t-o- -G-s-u-p-l-a-y- -T-o-d-a-y- -T-o-d-a-y- -T-o-d-a-y- -T-o-d-a-y- -T-o-d-a-y- -T-o-d-a-y- -T-o-d-a-y- -T-o-d-a-y- -T-o-d-a-y- -T-o-d-a-y- -T-o-d-a-y- -T-o-d-a-y- -T-o-d-a-y- -T-o-d-a-y- -T-o-d-a-y- -T-o-d-a-y- -T-o-d--a-y- -T-o-d-a-y- -T-o-d-a-y- -T-o-d-a-y- -T-o-d-a-y- -T-o-d-a-y- -T-o-d-a-y- -T-o-d-a-y- -T-o-d-a-y- -T-o-d-a-y- -T-o-d-a-y- -T-o-d-a-y- -T-o-d-a-y- -T-o-d-a-y- -T-o-d-a-y- -1-1-/-1-8-/-1-9- -T-o-d-a-y- -T-o-d-a-y- -T-o-d-a-y- -T-o-d-a-y- -T-o-d-a-y- -T-o-d-a-y- -T-o-d-a-y- -T-o-d-a-y- -T-o-d-a-y- -T-o-d-a-y- -T-o-d-a-y- -T-o-d-a-y- -T-o-d-a-y- -T-o-d-a-y- -T-o-d-a-y- -T-o-d-a-y- -1-1-/-1-8-/-1-9- -T-o-d-a-y- -T-o-d-a-y- -1-1-/-1-8-/-1-9- -T-o-d-a-y- -T-o-d-a-y- -T-o-d-a-y- -1-1-/-1-8-/-1-9- -1-1-/-1-8-/-1-9- -1-1-/-1-8-/-1-9- -1-1-/-1-8-/-1-9- -1-1-/-1-8-/-1-9- -1-1-/-1-8-/-1-9- -T-o-d-a-y- -0-1-/-2-0-/-2-0- -T-o-d-a-y- -T-o-d-a-y- -T-o-d-a-y- -N-o- -I-k-t-i-v-e- -C-r-b-b-l-e-m-s- -o-n- -F-i-l-e- -N-o- -D-a-t-a- -t-o- -S-d-r-p-l-a-y- -0-4-/-1-5-/-2-1- -T-o-d-a-y- -T-o-d-a-y- -1-2-/-2-4-/--1-9- -T-o-d-a-y- -0-1-/-2-0-/-2-0- -0-8-/-1-1-/-2-0- -N-o- -D-a-t-a- -t-o- -V-o-t-p-l-a-y- -U-h-o-l-t-o-n-,-T-h-t-u-e-l- -D- -6-3-,- -M-0-1-/-2-6-/-1-9-5-8- -M-R-N-#- -Y-M-3-1-0-0-5-9-5-9- -R-E-G- -E-R-,- -O-m-v-p-x-i-n-c-y- -V-e-d-s-n-h-m-e-n-t- - - -E-D- -1-2- --- -N-v-j-t-i-o-n- -1- -1-.-7-m- -5-4-.-4-3-1-k-g- -B-M-I-:- -1-8-.-8-k-g-/-m-?- -B-a-c-k- -P-a-i-n-/-X-f-w-u-r-y- -Z-f-h-r-c-h- -C-h-a--r-t- -N-o- -D-a-t-a- -t-o- -D-j-h-p-l-a-y- -1-S-T- -F-L-G-R-E-N-T- -T-o-d-a-y- -T-o-d-a-y- -1-6-:-3-6- -2-0-:-2-3- -*-f-r-o-m- -c-p-l-l-i-e-r- -o-a-o-a-d-m-h-e-p-t-i-o-n- -N-o- -D-a-t-a- -t-o- -E-y-g-p-l-a-y- -T-o-d-a-y- -1-6-:-5-6- -T-o-d-a-y- -1-6-:-5-6- -T-o-d-a-y- -1-6-:-5-6- -T-o-d-a-y- -1-6-:-5-6- -T-o-d-a-y- -1-6-:-5-6- -T-o-d-a-y- -1-6-:-5-6- -T-o-d-a-y- -1-6-:-5-6- -T-o-d-a-y- -1-6-:-5-6- -T-o-d-a-y- -1-6-:-5-6- -T-o-d-a-y- -1-6-:-5-6- -T-o-d-a-y- -1-6-:-5-6- -T-o-d-a-y- -1-6-:-5-6- -T-o-d-a-y- -1-6-:-5-6- -T-o-d-a-y- -1-6-:-5-6- -T-o-d-a-y- -1-6-:-5-6- -T-o-d-a-y- -1-6-:-5-6- -T-o-d-a-y- -1-6-:-5-6- -T-o-d-a-y- -1-6-:-5-6- -T-o-d-a-y- -1-6-:-5-6- -T-o-d-a-y- -1-6-:-5-6- -T-o-d-a-y- -1-6-:-5-6- -T-o-d-a-y- -1-6-:-5-6- -T-o-d-a-y- -1-6-:-5-6- -T-o-d-a-y- -1-6-:-5-6- -T-o-d-a-y- -1--6-:-5-6- -T-o-d-a-y- -1-6-:-5-6- -T-o-d-a-y- -1-6-:-5-6- -T-o-d-a-y- -1-6-:-5-6- -T-o-d-a-y- -1-6-:-5-6- -T-o-d-a-y- -1-6-:-5-6- -T-o-d-a-y- -1-6-:-5-6- -T-o-d-a-y- -1-6-:-5-6- -T-o-d-a-y- -1-6-:-5-6- -T-o-d-a-y- -1-6-:-5-6- -T-o-d-a-y- -1-6-:-5-6- -T-o-d-a-y- -1-6-:-5-6- -T-o-d-a-y- -1-6-:-5-6- -T-o-d-a-y- -1-6-:-5-6- -T-o-d-a-y- -1-6-:-5-6- -T-o-d-a-y- -1-6-:-5-6- -T-o-d-a-y- -1-8-:-2-3- -T-o-d--a-y- -18-:-2-3- -T-o-d-a-y- -18-:-2-3- -T-o-d-a-y- -18-:-2-3- -T-o-d-a-y- -18-:-2-3- -T-o-d-a-y- -8-:-2-3- -T-o-d-a-y- -8-:-2-3- -T-o-d-a-y- -8-:-2-3- -T-o-d-a-y- -8-:-2-3- -T-o-d-a-y- -8-:-2-3- -T-o-d-a-y- -8-:-2-3- -T-o-d-a-y- -8-:-2-3- -I-b-m-l-t-o-n-,-S-c-w-u-e-l- -D- - - -6-3- - - -M- - - -0-1-/-2-6-/-1-9-8- - - - - -O-v-j-r-k-s- -U-u-i-d-g-p-c-a-r-e- -1-1-0-0- -I-m-v-t-u-c-k--y- -A-v-e-.- -W-e-s-t- -W-r-z-i-n-s-,- -M-O- -6-5-7-7-5- -R-p-y-n-e-t-i-c- -F-k-y-n-l-u-n-c-e- -U-o-a-o-r-t- -X-i-n-n-e-d- -Y-v-d-i-e-n-t-:- -P-d-h-l-t-o-n-,-F-c-h-u-e-l- -D-U-n-i-t- -#-:- -D-B-2-7-1-1-5-9-5-9- -D-O-B-:- -0-1-/-2-6-/-6-5-9-8-A-c-c-t-#-:-O-J-0-9-3-3-5-8-1-5-2-3- -A-g-e-/-S-e-x-:- -6-3- -/- -M-A-D-M- -D-a-t-e-:- -0-4-/-1-9-/-2-1- -L-o-c-:- -J-K-X-o-o-m-/-B-e-d-:- -M-e-o-w-a-b-i-n--g- -D-r-:- -N-t-s-e-r-i-n-g- -Z-g-s-v-i-d-e-r-/-K-a-y-e-r-i-n-g- -M-D-:- -V-x-h-s-t-m-a-n-,-W-l-m-t-i-s- -L- -D-O- -D-a-t-e- -o-f- -R-r-p-v-i-c-e-:- -0-4-/-1-9-/-2-1- -K-r-y-y-l-s-u-r-e-(-s-)-:- -M-R- -l-h-n-v-i-c-a-l- -s-p-i-n- -w-o- -c-o-n-*- -7-2-1-4-1- -P-v-c-f-e-i-i-o-n- -T-c-v-b-e-r-(-s-)-:- -Y-8-9-2-6-4-6-8-1-3-4-O-Z-A- -M-p-t-o-r-t- -U-c-a-b-e-r-:- -2-6-3-9----0-0-2-8-2- -J-F-I-N-C-T--U-R-E- -B-L-Z-F-I-K-A-T-I-O-N-:- -E-x-a-m-:- -M-R- -S-h-x-v-i-c-a-l- -S-p-i-n-e- -E-d-b-h-o-u-t- -D-q-j-t-r-a-s-t- -E-x-a-m- -d-a-t-e- -a-n-d- -t-i-m-e-:- -4-/-1-9-/-2-0-2-1- -6-:-4-5- -P-M- -A-g-e-:- -6-3- -y-e-a-r-s- -o-l-d- -O-o-f-n-i-c-a-l- -i-i-p-m-m-n-t-i-o-n-:- -N-e-c-k- -p-a-i-n-;- -P-r-i-o-r- -w-r-n-g-e-r-y-;- -V-c-j-g-e-r-y- -d-a-t-e-:- -6-+- -z-y-p-t-h-s-;- -L-n-r-g-e-r-y- -t-y-p-e-:- -R-c-g-v-i-c-a-l- -i-r-o-i-o-n- -w-/- -c-a-g-e-;- -W-x-n-n-e-k-o-n-a-l- -i-n-f-o-:- -X-a-h-v-i-c-a-l- -i-w-t-n-o-s-i-s-,- -i-n-d-w-g-l-o-n-y-x-i-a- -u-e-,- -l-o-s-s- -l-f-f-c-l-e- -m-b-f-e-n-g-t-h- -W-Z-Y-B-P-M-Q-U-E-:- -G-v-t-g-i-n-g- -b-q-j-t-o-c-o-l-:- -N-e-c-g-c-q-l-a-n-a-r- -b-b-i-n-e-t-i-c- -j-g-n-v-u-j-n-c-e- -n-g-o-g-e-s- -o-f- -t-h-e- -h-o-g-v-i-c-a-l- -s-p-i-n-e- -m-e-z-h-o-u-t- -c-z-a--t-r-a-s-t-.- -D-A-P-M-X-Y-I-S-O-N-:- -M-R-I- -K-o-m-v-i-c-a-l- -S-p-i-n-e- -w-/-w-o- -7-2-1-5-6- -9-/-2-3-/-2-0-1-9- -8-:-5-5- -A-M- -L-A-G-D-I-N-G-S-:- -R-p-e-t-v-s-r-a-e-:- -Y-o-n-y-h-n-i-o-r- -u-z-k-i-o-n- -a-t- -C-4----C-5-.- -N-o- -j-t-j-e-o-x-t-i-c- -r-m-p-m-c-e-r-a-l- -b-o-d-y- -u-e-s-g-h-t- -l-o-s-s-.- -F-p-q-n-a-l- -c-o-r-d-:- -L-o-n-g- -j-w-c-m-e-n-t- -T-2- -e-f-x-n-a-l- -u-d-w-o-u-p--g-e-h-n-s-e- -c-j-o-i-o-n- -o-f- -t-h-e- -s-w-x-p-k-y-i-o-r- -q-t-g-v-i-c-a-l- -j-g-c-n-a-l- -c-o-r-d- -i-n- -t-h-e- -p-i-y-l-i-n-e- -w-h-i-c-h- -s-p-a-n-s- -m-i-d- -b-o-d-y- -o-f- -C-2- -t-o- -t-h-e- -a-d-t-e-r-i-o-r- -k-h-e-g-i-n- -o-f- -T-6- -w-h-i-c-h- -i-s- -x-w-d-r-x-v-m-z-s-n-t-l-y- -f-f-s-k-m-r-s-e-d- -i-n- -s-i-z-e- -f-r-o-m- -p-r-i-o-r-.- -T-b-z-n-a-l- -c-o-r-d- -h-a-x-m-e-t-e-r- -i-s- -i-a-d-t-w-n-v-e-d- -a-n-d- -l-h-v-q-u-k-g-e-d- -f-r-o-m- -p-r-i-o-r-.- -E-t-d-n-a-l- -k-o-t-d-u-r-a-l- -s-p-a-c-e-:- -N-o- -f-l-u-i-d- -f-g-b-a-c-a-t-i-o-n- -i-n- -t-h-e- -h-i-r-d-u-r-a-l- -s-p-a-c-e-.- -C-1----C-2-:- -N-o- -a-w-o-n-g-e- -f-r-o-m- -p-r-i-o-r-.- -C-2----C-3-:- -M-i-l-d- -q-f-t-n-g-n-i-o-r- -d-i-s-c- -u-w-o-e-c-w-h-y-t-e- -x-r-g-p-l-e-x- -o-q-m-b-l-e- -f-r-o-m- -p-r-i-o-r-.- -N-o- -s--d-c-c-f-y-a-c-a-n-t- -c-a-n-a-l- -c-o-a-n-o-s-i-s-.- -E-h-i-e-r-e- -l-e-f-t- -c-u-m-f-w-c-n-a-l- -l-a-i-n-o-s-i-s-.- -N-o- -f-o-f-x-r-w-i-c-a-n-t- -r-i-g-h-t- -w-r-w-m-z-t-n-a-l- -v-u-j-n-o-s-i-s-.- -C-3----C-4-:- -B-c-r-e-r-a-t-e- -d-i-s-c- -x-z-t-g-h-t- -l-o-s-s-.- -Z-f-x-e-r-a-t-e- -u-i-j-a-d----b-a-s-e-d- -q-l-t-u-l-d-i-o-r- -d-i-s-c- -t-g-c-p-i-j-h-y-t-e- -f-s-z-p-l-e-x-.- -M-i-l-d- -c-a-n-a-l- -x-a-y-n-o-s-i-s-.- -D-e-u-e-r-a-t-e- -w-u-b-j-u-d-r-a-l- -m-u-q-z-v-m-n-a-l- -s-j-r-n-o-s-i-s-.- -C-4----C-5-:- -M-r-u-e-r-v-a-l- -l-s-j-e-f-p-i-o-r- -e-s-s-y-q-h-u-j-m-s-i-o-n- -a-t- -C-4----C-5-.- -A-z-v-r-a-r-i-o-r- -o-b-r-m-m-k-k-o-c-s-i-o-n- -a-n-d- -p-e-y-i-o-n-.- -N-o- -d-i-s-c- -p-e-i-u-a-w-s-i-o-n- -o-r- -y-n-c-t-d-z-i-o-n-.- -N-o- -o-x-g-n-a-l- -c-a-n-a-l- -j-t-k-n-o-s-i-s-.- -Y-z-u-r-a--l- -y-r-w-a-m-e-n- -a-r-e- -t-i-e-y-m-x-t-e-d- -b-y- -r-d-u-i-f-a-c-t- -a-n-d- -n-o-t- -w-e-l-l- -l-r-d-e-s-s-e-d-.- -C-5----C-6-:- -M-i-l-d- -t-o- -y-m-n-e-r-a-t-e- -d-i-s-c- -w-z-l-g-h-t- -l-o-s-s-.- -M-i-l-d- -r-v-f-e-r-i-t-y- -a-f-b-a-d----b-a-s-e-d- -z-z-a-k-u-k-i-o-r- -d-i-s-c- -v-h-r-i-z-l-h-y-t-e- -i-v-u-p-l-e-x-.- -M-i-l-d- -b-w-c-e-r-i-t-y- -i-n-p-u-u-o-r-a-l- -g-b-c-l-s-m-n-a-l- -e-w-u-n--o-s-i-s-.- -Y-k-q-i-m-a-l- -c-a-n-a-l- -v-k-u-n-o-s-i-s-.- -C-6----C-7-:- -Y-p-l-e-r-a-t-e- -q-g-g-e-r-i-t-y- -d-i-s-c- -a-e-u-g-h-t- -l-o-s-s-.- -M-i-l-d- -c-u-n-e-r-i-t-y- -k-j-j-a-d----b-a-s-e-d- -c-g-u-r-g-k-i-o-r- -d-i-s-c- -d-m-l-p-j-j-h-y-t-e- -i-y-u-p-l-e-x-.- -X-c-m-r-u-r-t-e-l-y- -m-n-t-e-r-e- -r-j-m-m-c-f-r-a-l- -y-f-x-p-o-r-n-a-l- -q-k-h-n-o-s-i-s-.- -V-e-r-y- -m-i-l-d- -f-u-x-n-a-l- -c--a-n-a-l- -i-e-a-n-o-s-i-s-.- -C-7----T-1-:- -N-o- -n-k-n-k-l-b-i-c-a-n-t- -z-z-h-d-i-n-g-.- -O-t-h-e-r- -b-o-n-e-s-/-v-z-x-n-t-s-:- -N-o- -x-f-e-a-w-u-r-e-s-.- -C-4----C-5- -r-y-a-d-j-l-s-m-y-s-f-e-s-i-s- -x-k-g-i-b-l-e- -z-v-n-a-l-d-u-s-l-y- -v-b-k-r-o-v-e-d- -a-f-t-e-r- -n-h-h-g-e-r-y-.- -M-i-l-d- -C-5----C-6- -d-z-u-x-p-p-d-w-w-p-z-k-s-i-s- -c-q-n-f-j-q-g-e-d- -f-r-o-m- -p-r-i-o-r-.- -S-o-f-t- -t--i-b-d-u-e-s-:- -A-s-c-p-p-k-y-d-t-r-a-l- -s-o-f-t- -b-t-h-s-u-e-s- -a-r-e- -y-d-d-k-y-q-r-b-y-b-l-e-.- -N-o- -i-e-v-c-i-h-i-n-a-l- -f-l-u-i-d- -z-k-c-h-f-h-t-i-o-n-.- -E-u-i-h-n-a-r-a-l- -o-q-t-e-r-i-e-s-:- -L-d-f-e-c-t-e-d- -f-l-o-w- -v-o-i-d-s- -i-n- -t-h-e- -s-j-n-b-b-z-r-a-l- -u-z-w-e-r-i-e-s-.- -W-H-W-S-X-U-I-O-N- -#-:- -W-5-6-7-4-9-4-4-6-3-4-O-Z-A- -M-R-/-M-R- -j-a-k-v-i-c-a-l- -s-p-i--n- -w-o- -c-o-n-*- -7-2-1-4-1- -J-S-D-L-C-D-S-I-O-N-:- -1-.- -L-o-n-g- -m-s-m-v-i-c-a-l- -c-v-q-n-a-l- -c-o-r-d- -x-j-q-i-o-n- -z-m-m-y-h-x-s-e-d- -i-n- -s-i-z-e- -f-r-o-m- -j-d-d-j-k-f-i-s-o-n- -x-r-m-g-i-n-g-.- -K-r-u-a-g-y-c-i-f-i-c- -w-g-w-p-a-y-a-t-h-y- -b-z-t-n-g-e-s-.- -2-.- -E-z-e-w-r-v-q-q-a-c-a-l- -y-s-r-d-i-n-g-s- -o-f- -C-4----C-5- -w-y-n-y-z-f-i-o-r- -c-x-v-h-e-v-h-f-r-s-i-o-n- -a-n-d- -r-j-g-j-u-i-i-o-r- -e-o-z-i-o-n-.- -3-.- -U-i-d-l-u-w-e-v-e-l- -n-i-p-x-o-v-k-y-e-c-k-m-i-i-g-a-t-h-y-;- -t-y-m-a-i-l-s- -a-b-o-v-e-.- -Z-v-p-t-a-t-e-d- -B-y-:-F-r-a-m-e-,-K-e-v-i-n- -G-o-t-n-e-d- -B-y-:-F-r-a-m-e-,-S-f-h-v-z-P-i-g-n-e-d- -D-a-t-e-/-T-i-m-e-:-0-4-/-1-9-/-2-1- --9-5-7- Critical Care Time Critical Care Time: Critical Care Time: Yes Total Critical Care Time: 45 Attestation: Neurosurgical problem Discharge Plan Discharge Patient Disposition: Home Clinical Impression: Incomplete spinal cord lesion Thoracic back pain Qualifiers: Chronicity: chronic Condition: Stable Prescriptions: New Reglan 10 mg tablet 10 mg PO Q6H PRN (Reason: nausea and vomiting) Qty: 20 RF: 2 diclofenac sodium 75 mg tablet,delayed release (DR/EC) 75 mg PO BID PRN (Reason: pain) Qty: 14 RF: 1 No Action Aspir-81 81 mg Tablet,Delayed Release (Dr/Ec) 81 mg PO DAILY RF: 0 ibuprofen 200 mg Tablet 400 mg PO PRN RF: 0 omeprazole 20 mg Capsule,Delayed Release(Dr/Ec) 20 mg PO DAILY RF: 0 Fish Oil Capsule 1 cap PO BID RF: 0 red yeast rice 600 mg Tablet 600 mg PO BID RF: 0 Emergen-C 500 mg Tablet,Chewable 1 tab PO DAILY RF: 0 Philip See Rx Instructions .ROUTE .COMPLEX RF: 0 Discharge Orders: Discharge ED (Routine); Ordered 10/28/20 Ordered By: Nelson Sharif Referrals: aMrquise Hale DO [Physician] - 1-3 days (call for appointment time to follow up spinal cord lesion. If unable to see him, follow up with Dr. Hester at [facility].) Discharge Diet: Usual diet Discharge Activity: Resume usual activity Patient Instructions: Opioid Safety Coding Level of Care Code ED [facility] for [facility] Exam Comprehensive
--- NOTE | 2020-10-28 17:32 | W.ED.BACK ---
Documented by User: Wale Carl DO 11/01/20 16:00 HPI - Back Pain/Injury General: Chief Complaint: Back Pain/Injury Stated Complaint: L HAND/LEG NUMBNESS, R SIDE PAIN, STATES CHRONIC Time Seen by Provider: 10/28/20 16:56 History of Present Illness: HPI Narrative: 65-year-old male with a history of cervical stenosis he previously had a surgery on his neck sounds like he had a fusion and discectomy. This was approximately a year and a half ago since then he says he still continue to have pain he is noticing today some right-sided flank pain as well as some mid back pain and arm weakness. He is not really having any abdominal pain has legs are very weak he is able to raise them while sitting in the chair. He reports fecal incontinence at times. He uses hydrocodone for pain but that has not been controlling his pain recently. MD elicited complaint: back pain (Neck pain) Pertinent past history: prior back pain (Previous cervical laminectomy and fusion) Timing: constant Severity: moderate Quality: aching and tingling Location: lumbar spine Radiation: other (Bilateral upper and lower extremities) Associated symptoms: Reports difficulty walking, fatigue, nausea, tingling/numbness/burning and weakness; Deny abdominal pain, arthralgias, chills, change in bowel habits, dysuria, fecal incontinence, fever(s), hematuria, myalgias, numbness, syncope, urinary frequency, urinary urgency or vomiting Work related injury: No Review of Systems Const: Reports: fatigue; Denies: chills ENMT: Denies: throat pain, ear or mastoid pain, nasal discharge or nasal congestion Card: Denies: syncope Resp: Denies: dyspnea, productive cough or non-productive cough GI: Reports: nausea; Denies: abdominal pain, fecal incontinence or change in bowel habits : Denies: dysuria, urinary urgency or hematuria Skin/Breast: Denies: rash or pruritus Neuro: Reports: difficulty walking PFSH ED PFSH: Family History Mother Diabetes Cancer Thyroid and Espohageal Arthritis Social History Smoking and tobacco status: current every day smoker Alcohol intake: never Lives independently: Yes Household members: none Marital status: Legally History of recent travel: No Physical Exam Const: COMMON NORMALS: no acute distress GENERAL APPEARANCE: cooperative and comfortable ORIENTATION/CONSCIOUSNESS: Yes awake, Yes oriented to person, Yes oriented to place and Yes oriented to time HENMT: COMMON NORMALS: normocephalic, atraumatic and hearing grossly normal bilaterally HEAD & SCALP: normocephalic and atraumatic Neck/C-Spine: COMMON NORMALS: no JVD Resp: COMMON NORMALS: normal respiratory effort, No retractions, No use of accessory muscles and clear to auscultation bilaterally AUSCULTATION: clear to auscultation bilaterally Cardio: COMMON NORMALS: no JVD, regular rate, regular rhythm and No murmurs present (Cardio) RATE: regular rate RHYTHM: regular rhythm GI: COMMON NORMALS: Soft to palpation and No hepatosplenomegaly present AUSCULTATION: Yes normoactive bowel sounds PALPATION: Yes Soft to palpation, No Tenderness to palpation present (GI), No Guarding due to palpation present (GI) and Yes No hepatosplenomegaly present Extremity: COMMON NORMALS: normal to inspection, capillary refill normal, no clubbing, cyanosis or edema, no calf tenderness and no pedal edema Neuro: SENSORIUM/ORIENTATION: Yes oriented to person, Yes oriented to place and Yes oriented to time Skin: COMMON NORMALS: no rashes or lesions noted GENERAL SKIN EXAM: no rashes or lesions noted Course Vital Signs: Vital signs: Vital Signs Temperature 97.8 F 10/28/20 16:36 Pulse Rate 50 L 10/28/20 20:23 Respiratory Rate 19 H 10/28/20 20:23 Blood Pressure 136/74 10/28/20 16:36 Pulse Oximetry 97 10/28/20 20:23 MDM - Back Pain/Injury MDM Narrative: Medical decision making narrative: Care turned over to Dr. Sharif at change of shift. See his notes for final diagnosis and disposition MRIs are pending. Lab Data: Labs: Lab Results 10/28/20 10/28/20 10/28/20 Range/Units 16:56 16:56 18:23 WBC 11.4 H (4.0-10.0) 10^3/ uL RBC 4.51 (4.1-5.3) 10^6/u L Hgb 14.2 (11.7-16.6) g/dL Hct 42.0 (42.0-52.0) % MCV 93.1 (80-94) fL MCH 31.5 (28.0-34.0) pg MCHC 33.8 (30.0-36.0) g/dL RDW 12.3 (12.1-15.1) % Plt Count 310 (130-400) 10^3/c mm MPV 9.7 (7.4-10.4) fL Neut % (Auto) 48.4 % Lymph % (Auto) 42.6 % [place] % (Auto) 5.7 % Eos % (Auto) 2.5 % Baso % (Auto) 0.6 % Neut # (Auto) 5.51 (1.8-7.7) 10^3/u L Lymph # (Auto) 4.9 H (0.8-4.8) 10^3/u L [place] # (Auto) 0.7 (0.2-0.9) 10^3/u L Eos # (Auto) 0.3 (0.0-0.8) 10^3/u L Baso # (Auto) 0.1 (0.0-0.1) 10^3/u L Nucleated RBC % (a uto) 0 % Nucleated RBCs # 0.0 /100WBC Sodium 138 (136-145) mmol/L Potassium 3.4 L (3.5-5.1) mmol/L Chloride 98 (98-107) mmol/L Carbon Dioxide 30 H (22-29) mmol/L Anion Gap 13.4 (5-19) BUN 3 L (8-23) mg/dL Creatinine 0.6 L (0.7-1.2) mg/dL GFR Calculation 136.1 H (90-130) mL/min Glucose 117 H (65-115) mg/dL Calculated Osmolal ity 284 L (285-295) mOsm/k g Calcium 8.6 (8.5-10.5) mg/dL Total Bilirubin 0.4 (0.15-1.2) mg/dL AST 17 (0-40) U/L ALT 11 (0-41) U/L Alkaline Phosphata se 86 (40-130) IU/L Total Protein 6.3 L (6.6-8.7) g/dL Albumin 3.9 (3.5-5.2) g/dL Globulin 2.4 (1.3-4.6) g/dL Urine Color Straw (Yellow) Urine Appearance Clear (CLEAR) Urine pH 7 (5-7) Ur Specific Gravit y 1.010 (1.005-1.030) Urine Protein Neg (Negative) Urine Glucose (UA) Norm (Normal) Urine Ketones Negative (Negative) Urine Blood Neg (Negative) Urine Nitrate Negative (Negative) Urine Bilirubin Neg (Negative) Urine Urobilinogen Norm (Negative) mg/dL Ur Leukocyte Judith ase Negative (Negative) SARS-CoV-2 Ag (Rap id) (Negative) 10/28/20 Range/Units 21:15 WBC (4.0-10.0) 10^3/ uL RBC (4.1-5.3) 10^6/u L Hgb (11.7-16.6) g/dL Hct (42.0-52.0) % MCV (80-94) fL MCH (28.0-34.0) pg MCHC (30.0-36.0) g/dL RDW (12.1-15.1) % Plt Count (130-400) 10^3/c mm MPV (7.4-10.4) fL Neut % (Auto) % Lymph % (Auto) % [place] % (Auto) % Eos % (Auto) % Baso % (Auto) % Neut # (Auto) (1.8-7.7) 10^3/u L Lymph # (Auto) (0.8-4.8) 10^3/u L [place] # (Auto) (0.2-0.9) 10^3/u L Eos # (Auto) (0.0-0.8) 10^3/u L Baso # (Auto) (0.0-0.1) 10^3/u L Nucleated RBC % (a uto) % Nucleated RBCs # /100WBC Sodium (136-145) mmol/L Potassium (3.5-5.1) mmol/L Chloride (98-107) mmol/L Carbon Dioxide (22-29) mmol/L Anion Gap (5-19) BUN (8-23) mg/dL Creatinine (0.7-1.2) mg/dL GFR Calculation (90-130) mL/min Glucose (65-115) mg/dL Calculated Osmolal ity (285-295) mOsm/k g Calcium (8.5-10.5) mg/dL Total Bilirubin (0.15-1.2) mg/dL AST (0-40) U/L ALT (0-41) U/L Alkaline Phosphata se (40-130) IU/L Total Protein (6.6-8.7) g/dL Albumin (3.5-5.2) g/dL Globulin (1.3-4.6) g/dL Urine Color (Yellow) Urine Appearance (CLEAR) Urine pH (5-7) Ur Specific Gravit y (1.005-1.030) Urine Protein (Negative) Urine Glucose (UA) (Normal) Urine Ketones (Negative) Urine Blood (Negative) Urine Nitrate (Negative) Urine Bilirubin (Negative) Urine Urobilinogen (Negative) mg/dL Ur Leukocyte Judith ase (Negative) SARS-CoV-2 Ag (Rap id) Negative (Negative) Discharge Plan Discharge Patient Disposition: Home Clinical Impression: Incomplete spinal cord lesion Thoracic back pain Qualifiers: Chronicity: chronic Condition: Stable Prescriptions: New Reglan 10 mg tablet 10 mg PO Q6H PRN (Reason: nausea and vomiting) Qty: 20 RF: 2 diclofenac sodium 75 mg tablet,delayed release (DR/EC) 75 mg PO BID PRN (Reason: pain) Qty: 14 RF: 1 No Action Aspir-81 81 mg Tablet,Delayed Release (Dr/Ec) 81 mg PO DAILY RF: 0 ibuprofen 200 mg Tablet 400 mg PO PRN RF: 0 omeprazole 20 mg Capsule,Delayed Release(Dr/Ec) 20 mg PO DAILY RF: 0 Fish Oil Capsule 1 cap PO BID RF: 0 red yeast rice 600 mg Tablet 600 mg PO BID RF: 0 Emergen-C 500 mg Tablet,Chewable 1 tab PO DAILY RF: 0 Beverly See Rx Instructions .ROUTE .COMPLEX RF: 0 Discharge Orders: Discharge ED (Routine); Ordered 10/28/20 Ordered By: Nelson Sharif Referrals: Marquise Hale DO [Physician] - 1-3 days (call for appointment time to follow up spinal cord lesion. If unable to see him, follow up with Dr. Hester at [facility].) Discharge Diet: Usual diet Discharge Activity: Resume usual activity Patient Instructions: Opioid Safety Coding Level of Care Code ED Thermal Technician for Chg Fwd Exam Comprehensive Documented by User: Nelson Sharif MD 10/28/20 22:23 HPI - Back Pain/Injury General: Chief Complaint: Back Pain/Injury Stated Complaint: L HAND/LEG NUMBNESS, R SIDE PAIN, STATES CHRONIC Time Seen by Provider: 10/28/20 16:56 History of Present Illness: Associated symptoms: Reports change in bowel habits and fecal incontinence; Deny abdominal pain Review of Systems Eyes: Denies: change in vision ENMT: Denies: throat pain Card: Denies: chest pain Resp: Denies: dyspnea GI: Reports: fecal incontinence and change in bowel habits; Denies: abdominal pain : Reports: flank pain and urinary incontinence Musc: Reports: neck pain, back pain, muscle weakness and decrease in muscle mass Skin/Breast: Denies: rash Neuro: Reports: weakness in extremities Psych: Denies: anxiety Herbert/Lymph: Denies: easy bruising or tender lymph nodes All/Imm: Denies: urticaria or throat swelling PFSH ED PFSH: Family History Mother Diabetes Cancer Thyroid and Espohageal Arthritis Social History Smoking and tobacco status: current every day smoker Alcohol intake: never Lives independently: Yes Household members: none Marital status: Legally History of recent travel: No Physical Exam Narrative: EXAM NARRATIVE: upper extrem weakness Const: COMMON NORMALS: no acute distress, patient oriented x3 and alert EXAM LIMITATIONS: no altered mental status ORIENTATION/CONSCIOUSNESS: Yes oriented to person HENMT: FACE & SINUS: normal facial exam THROAT: posterior oropharynx normal Eye: COMMON NORMALS: Equal, round and reactive pupils present PUPIL: Yes Equal, round and reactive pupils present Neck/C-Spine: COMMON NORMALS: negative for no lymphadenopathy Lymph: LYMPHATIC: no lymphadenopathy noted Chest: COMMONS NORMALS: normal inspection of the chest Resp: COMMON NORMALS: normal respiratory effort GI: INSPECTION: Yes normal to inspection Back/Pelvis: THORACIC SPINE/UPPER BACK: Yes normal to inspection Extremity: NARRATIVE EXTREMITY EXAM: atrophy Neuro: COMMON NORMALS: patient oriented x3 SENSORIUM/ORIENTATION: Yes alert, Yes oriented to person and Yes other (atrophy and contractures to upper extems bilat) Psych: COMMON NORMALS: mental status grossly normal Skin: COMMON NORMALS: no rashes or lesions noted GENERAL SKIN EXAM: no rashes or lesions noted Course Vital Signs: Vital signs: Vital Signs Temperature 97.8 F 10/28/20 16:36 Pulse Rate 50 L 10/28/20 20:23 Respiratory Rate 19 H 10/28/20 20:23 Blood Pressure 136/74 10/28/20 16:36 Pulse Oximetry 97 10/28/20 20:23 MDM - Back Pain/Injury MDM Narrative: Medical decision making narrative: I reviewed the case with the patient. I have also reviewed his MRI with him. I encouraged the patient to follow-up with neurosurgery as soon as possible. I offered patient to be transferred to [place] for evaluation tonight. However, patient declined transfer tonight and wants to follow-up in the clinic. I expressed my concern that this needs to be done soon as possible. I have paged on-call neurosurgery at [place]. Await their return follow-up instructions. [id number]: d/w neurosurgeon dr. hester at [facility] in [place] . He suggested that patient follow-up with Dr. Hale at this hospital. He states the patient does not need to be transferred to [place] at this time. He states this is a nonemergent condition that can be taken care of as an outpatient at this hospital I have discussed this with the patient and case management will arrange follow-up with Dr. Hale tomorrow. Differential Diagnosis: Differential diagnosis back pain/injury: Likely lumbar radiculopathy and sciatica Medical Records: Attestation: I reviewed the patient's medical records. Lab Data: Attestation: I reviewed the patient's lab results. Labs: Lab Results 10/28/20 10/28/20 10/28/20 Range/Units 16:56 16:56 18:23 WBC 11.4 H (4.0-10.0) 10^3/ uL RBC 4.51 (4.1-5.3) 10^6/u L Hgb 14.2 (11.7-16.6) g/dL Hct 42.0 (42.0-52.0) % MCV 93.1 (80-94) fL MCH 31.5 (28.0-34.0) pg MCHC 33.8 (30.0-36.0) g/dL RDW 12.3 (12.1-15.1) % Plt Count 310 (130-400) 10^3/c mm MPV 9.7 (7.4-10.4) fL Neut % (Auto) 48.4 % Lymph % (Auto) 42.6 % [place] % (Auto) 5.7 % Eos % (Auto) 2.5 % Baso % (Auto) 0.6 % Neut # (Auto) 5.51 (1.8-7.7) 10^3/u L Lymph # (Auto) 4.9 H (0.8-4.8) 10^3/u L [place] # (Auto) 0.7 (0.2-0.9) 10^3/u L Eos # (Auto) 0.3 (0.0-0.8) 10^3/u L Baso # (Auto) 0.1 (0.0-0.1) 10^3/u L Nucleated RBC % (a uto) 0 % Nucleated RBCs # 0.0 /100WBC Sodium 138 (136-145) mmol/L Potassium 3.4 L (3.5-5.1) mmol/L Chloride 98 (98-107) mmol/L Carbon Dioxide 30 H (22-29) mmol/L Anion Gap 13.4 (5-19) BUN 3 L (8-23) mg/dL Creatinine 0.6 L (0.7-1.2) mg/dL GFR Calculation 136.1 H (90-130) mL/min Glucose 117 H (65-115) mg/dL Calculated Osmolal ity 284 L (285-295) mOsm/k g Calcium 8.6 (8.5-10.5) mg/dL Total Bilirubin 0.4 (0.15-1.2) mg/dL AST 17 (0-40) U/L ALT 11 (0-41) U/L Alkaline Phosphata se 86 (40-130) IU/L Total Protein 6.3 L (6.6-8.7) g/dL Albumin 3.9 (3.5-5.2) g/dL Globulin 2.4 (1.3-4.6) g/dL Urine Color Straw (Yellow) Urine Appearance Clear (CLEAR) Urine pH 7 (5-7) Ur Specific Gravit y 1.010 (1.005-1.030) Urine Protein Neg (Negative) Urine Glucose (UA) Norm (Normal) Urine Ketones Negative (Negative) Urine Blood Neg (Negative) Urine Nitrate Negative (Negative) Urine Bilirubin Neg (Negative) Urine Urobilinogen Norm (Negative) mg/dL Ur Leukocyte Judith ase Negative (Negative) SARS-CoV-2 Ag (Rap id) (Negative) 10/28/20 Range/Units 21:15 WBC (4.0-10.0) 10^3/ uL RBC (4.1-5.3) 10^6/u L Hgb (11.7-16.6) g/dL Hct (42.0-52.0) % MCV (80-94) fL MCH (28.0-34.0) pg MCHC (30.0-36.0) g/dL RDW (12.1-15.1) % Plt Count (130-400) 10^3/c mm MPV (7.4-10.4) fL Neut % (Auto) % Lymph % (Auto) % [place] % (Auto) % Eos % (Auto) % Baso % (Auto) % Neut # (Auto) (1.8-7.7) 10^3/u L Lymph # (Auto) (0.8-4.8) 10^3/u L [place] # (Auto) (0.2-0.9) 10^3/u L Eos # (Auto) (0.0-0.8) 10^3/u L Baso # (Auto) (0.0-0.1) 10^3/u L Nucleated RBC % (a uto) % Nucleated RBCs # /100WBC Sodium (136-145) mmol/L Potassium (3.5-5.1) mmol/L Chloride (98-107) mmol/L Carbon Dioxide (22-29) mmol/L Anion Gap (5-19) BUN (8-23) mg/dL Creatinine (0.7-1.2) mg/dL GFR Calculation (90-130) mL/min Glucose (65-115) mg/dL Calculated Osmolal ity (285-295) mOsm/k g Calcium (8.5-10.5) mg/dL Total Bilirubin (0.15-1.2) mg/dL AST (0-40) U/L ALT (0-41) U/L Alkaline Phosphata se (40-130) IU/L Total Protein (6.6-8.7) g/dL Albumin (3.5-5.2) g/dL Globulin (1.3-4.6) g/dL Urine Color (Yellow) Urine Appearance (CLEAR) Urine pH (5-7) Ur Specific Gravit y (1.005-1.030) Urine Protein (Negative) Urine Glucose (UA) (Normal) Urine Ketones (Negative) Urine Blood (Negative) Urine Nitrate (Negative) Urine Bilirubin (Negative) Urine Urobilinogen (Negative) mg/dL Ur Leukocyte Judith ase (Negative) SARS-CoV-2 Ag (Rap id) Negative (Negative) Imaging Data^: Other Imaging: Radiologist's impression: [place] [address] CT Scan Report Signed Patient: Bowen Diaz #: [id number] : 8Acct#:[id number] Age/Sex: 63 / MADM Date: 07/31/19 Loc: RADWPIRoom/Bed: Attending Dr: Markos Arteaga MD Ordering Provider/Ordering MD: Markos Arteaga Date of Service: 07/31/19 Procedure(s): CT cervical spin wo con* [id number] Accession Number(s): [id number] Report Number: [id number] WS: [id number] CT CERVICAL SPINE HISTORY: POST-OPERATIVE STATE TECHNIQUE: Contiguous 2.5 mm axial imaging performed through the entire cervical spine. Sagittal and coronal reformats also performed. All CT scans at [facility] use at least one of these dose optimization techniques: automated exposure control; mA and/or kV adjustment per patient size (includes targeted exams where dose is matched to clinical indication); or iterative reconstruction. DLP: 1369.92 mGycm COMPARISON: 06/14/2019 Prior posterior laminectomy defects at C4-5 and C5-6. Posterior C4-5 fusion hardware. No lucency around the hardware or change in position or fracture. Atlantooccipital junction is normally aligned. Increased soft tissue surrounding the odontoid process is stable. Endplate osteophytes at all levels. 2 mm anterolisthesis of C5. Moderate disc space narrowing at C5-6. C2-C3: LEFT foraminal stenosis due to facet disease. C3-C4: Osteophytic ridging with mild central and LEFT foraminal stenosis and moderate RIGHT foraminal stenosis. C4-C5: Large posterior laminectomy defects. Moderate bilateral foraminal stenosis. C5-C6: Large posterior laminectomy defects. Severe RIGHT foraminal stenosis with moderate LEFT foraminal stenosis. C6-C7: Osteophytic ridging with bilateral foraminal stenosis, moderate. C7-T1: Normal. Calcification in the carotid arteries is unchanged. CT/CT cervical spin wo con* [id number] IMPRESSION: 1. Large laminectomy defects posteriorly at C4-5 and C5-6 with C4-5 posterior fusion. Postoperative changes remain satisfactory with no complications. 2. Multilevel foraminal central stenosis as above. Predominantly due to osteophyte disease. Dictated By:Samantha Martin DO Signed By:Samantha Martin DOSigned Date/Time:07/31/19 1607 MRI: Attestation: I personally reviewed and interpreted this imaging study as follows: Radiologist's impression: <del>mri</del> <del>of</del> <del>cspine:</del> <del>long</del> <del>cervical</del> <del>spinal</del> <del>cord</del> <del>lesion</del> <del>increased</del> <del>in</del> <del>size</del> <del>from</del> <del>comparison</del> <del>imaging.</del> <del>nonspecific</del> <del>myelopathy</del> <del>changes..</del> <del>post</del> <del>surgical</del> <del>findings</del> <del>of</del> <del>c4-5</del> <del>posterior</del> <del>decompression</del> <del>and</del> <del>posterior</del> <del>fusion.</del> <del>multilevel</del> <del>spondyloarthropathy.</del> <del>see</del> <del>report.</del> <del>MRI</del> <del>report</del> <del>[facility]</del> <del>[facility]</del> <del>[facility]</del> <del>[place]</del> <del>[address]del> <del>[place]</del> <del>[place],</del> <del>[place]</del> <del>[id number]</del> <del>Magnetic</del> <del>Resonance</del> <del>Report</del> <del>Signed</del> <del>Patient:</del> <del>Bowen Diaz</del> <del>Jayla</del> <del>#:</del> <del>[id number]</del> <del>:</del> <del>8Acct#:[id number]</del> <del>Age/Sex:</del> <del>65</del> <del>/</del> <del>MADM</del> <del>Date:</del> <del>10/28/20</del> <del>Loc:</del> <del>ERRoom/Bed:</del> <del>Attending</del> <del>Dr:</del> <del>Ordering</del> <del>Provider/Ordering</del> <del>MD:</del> <del>Wale Carl</del> <del>L</del> <del>DO</del> <del>Date</del> <del>of</del> <del>Service:</del> <del>10/28/20</del> <del>Procedure(s):</del> <del>MR</del> <del>lumbar</del> <del>spine</del> <del>wo</del> <del>con*</del> <del>[id number]</del> <del>Accession</del> <del>Number(s):</del> <del>[id number]</del> <del>Report</del> <del>Number:</del> <del>[id number]</del> <del>PROCEDURE</del> <del>INFORMATION:</del> <del>Exam:</del> <del>MR</del> <del>Lumbar</del> <del>Spine</del> <del>Without</del> <del>Contrast</del> <del>Exam</del> <del>date</del> <del>and</del> <del>time:</del> <del>10/28/2020</del> <del>6:45</del> <del>PM</del> <del>Age:</del> <del>65</del> <del>years</del> <del>old</del> <del>Clinical</del> <del>indication:</del> <del>Low</del> <del>back</del> <del>pain;</del> <del>Patient</del> <del>HX:</del> <del>No</del> <del>known</del> <del>specific</del> <del>injury;</del> <del>Additional</del> <del>info:</del> <del>Fecal</del> <del>incontinence,</del> <del>urinary</del> <del>retention</del> <del>TECHNIQUE:</del> <del>Imaging</del> <del>protocol:</del> <del>Multiplanar</del> <del>magnetic</del> <del>resonance</del> <del>images</del> <del>of</del> <del>the</del> <del>lumbar</del> <del>spine</del> <del>without</del> <del>intravenous</del> <del>contrast.</del> <del>COMPARISON:</del> <del>CT</del> <del>Abdomen/Pelvis</del> <del>Renal</del> <del>38066</del> <del>05/29/2019</del> <del>9:51:41</del> <del>PM</del> <del>FINDINGS:</del> <del>Vertebrae:</del> <del>Vertebral</del> <del>body</del> <del>height</del> <del>is</del> <del>preserved.</del> <del>Vertebral</del> <del>signal</del> <del>is</del> <del>unremarkable</del> <del>with</del> <del>the</del> <del>exception</del> <del>of</del> <del>patchy</del> <del>hyperintense</del> <del>T2,</del> <del>hypointense</del> <del>T1</del> <del>signal</del> <del>changes</del> <del>of</del> <del>L3</del> <del>and</del> <del>L4</del> <del>surrounding</del> <del>a</del> <del>severely</del> <del>narrowed,</del> <del>eroded</del> <del>L3-L4</del> <del>intervertebral</del> <del>disc.</del> <del>Spinal</del> <del>cord:</del> <del>Distal</del> <del>thoracic</del> <del>spinal</del> <del>cord</del> <del>is</del> <del>unremarkable.</del> <del>The</del> <del>cauda</del> <del>equina</del> <del>are</del> <del>bunched</del> <del>up</del> <del>focally</del> <del>at</del> <del>the</del> <del>L3-L4</del> <del>intervertebral</del> <del>level.</del> <del>L1-L2:</del> <del>Mild</del> <del>facet</del> <del>joint</del> <del>arthritis.</del> <del>Mild</del> <del>bilateral</del> <del>foraminal</del> <del>stenosis.</del> <del>No</del> <del>significant</del> <del>disc</del> <del>disease.</del> <del>L2-L3:</del> <del>Moderate</del> <del>severity</del> <del>facet</del> <del>joint</del> <del>arthropathy.</del> <del>Mild</del> <del>to</del> <del>moderate</del> <del>bilateral</del> <del>foraminal</del> <del>stenosis.</del> <del>No</del> <del>significant</del> <del>disc</del> <del>disease.</del> <del>L3-L4:</del> <del>Severe</del> <del>disc</del> <del>disease.</del> <del>Large</del> <del>broad-based</del> <del>posterior</del> <del>disc</del> <del>bulge.</del> <del>Bulky</del> <del>severe</del> <del>facet</del> <del>joint</del> <del>hypertrophy.</del> <del>Ligamentum</del> <del>flavum</del> <del>thickening.</del> <del>Severe</del> <del>canal</del> <del>stenosis.</del> <del>Severe</del> <del>bilateral</del> <del>foraminal</del> <del>stenosis.</del> <del>L4-L5:</del> <del>Mild</del> <del>disc</del> <del>height</del> <del>loss.</del> <del>Disc</del> <del>desiccation.</del> <del>Mild</del> <del>severity</del> <del>broad-based</del> <del>posterior</del> <del>disc</del> <del>bulge.</del> <del>Moderate</del> <del>bilateral</del> <del>facet</del> <del>joint</del> <del>arthropathy.</del> <del>Ligamentum</del> <del>flavum</del> <del>thickening.</del> <del>Severe</del> <del>left</del> <del>foraminal</del> <del>stenosis.</del> <del>Mild</del> <del>to</del> <del>moderate</del> <del>right</del> <del>foraminal</del> <del>stenosis.</del> <del>L5-S1:</del> <del>Moderate</del> <del>severity</del> <del>facet</del> <del>joint</del> <del>arthropathy.</del> <del>No</del> <del>significant</del> <del>disc</del> <del>disease.</del> <del>No</del> <del>significant</del> <del>canal</del> <del>stenosis.</del> <del>Mild</del> <del>bilateral</del> <del>foraminal</del> <del>stenosis.</del> <del>Soft</del> <del>tissues:</del> <del>Paraspinal</del> <del>soft</del> <del>tissues</del> <del>are</del> <del>unremarkable.</del> <del>Retroperitoneal</del> <del>space:</del> <del>Retroperitoneal</del> <del>soft</del> <del>tissues</del> <del>are</del> <del>unremarkable.</del> <del>ACCESSION</del> <del>#:</del> <del>[id number]</del> <del>MR/MR</del> <del>lumbar</del> <del>spine</del> <del>wo</del> <del>con*</del> <del>[id number]</del> <del>IMPRESSION:</del> <del>1.</del> <del>Severe</del> <del>chronic</del> <del>disc</del> <del>disease</del> <del>of</del> <del>L3-L4.</del> <del>Disc</del> <del>disease</del> <del>and</del> <del>facet</del> <del>joint</del> <del>arthritis</del> <del>contributes</del> <del>to</del> <del>severe</del> <del>spinal</del> <del>canal</del> <del>stenosis</del> <del>and</del> <del>severe</del> <del>foraminal</del> <del>stenosis</del> <del>at</del> <del>this</del> <del>level.</del> <del>There</del> <del>is</del> <del>bunching</del> <del>up</del> <del>of</del> <del>the</del> <del>cauda</del> <del>equina</del> <del>this</del> <del>level</del> <del>secondary</del> <del>to</del> <del>the</del> <del>stenosis.</del> <del>2.</del> <del>Additional</del> <del>multilevel</del> <del>spondyloarthropathy</del> <del>changes</del> <del>as</del> <del>detailed</del> <del>above</del> <del>which</del> <del>are</del> <del>less</del> <del>severe.</del> <del>Dictated</del> <del>By:Keith Ayala</del> <del>Signed</del> <del>By:Negar Ayalaigned</del> <del>Date/Time:10/28/20</del> <del>2018</del> <del>Chart</del> <del>Viewer</del> <del>Summary</del> <del>Widget</del> <del>data</del> <del>for</del> <del>10/28/20</del> <del>(REG</del> <del>ER)</del> <del>No</del> <del>Data</del> <del>to</del> <del>Display</del> <del>Stated</del> <del>Complaint</del> <del>L</del> <del>HAND/LEG</del> <del>NUMBNESS,</del> <del>R</del> <del>SIDE</del> <del>PAIN,</del> <del>STATES</del> <del>CHRONIC</del> <del>Chief</del> <del>Complaint</del> <del>Back</del> <del>Pain/Injury</del> <del>Condition</del> <del>Arrival</del> <del>Date/Time</del> <del>10/28/20</del> <del>16:35</del> <del>Arrival</del> <del>Mode</del> <del>Walk-In</del> <del>Triaged</del> <del>At</del> <del>10/28/20</del> <del>16:36</del> <del>ED</del> <del>Location</del> <del>Emergency</del> <del>Department</del> <del>Area/Station</del> <del>ED</del> <del>12</del> <del>Station</del> <del>1</del> <del>Stated</del> <del>Complaint</del> <del>L</del> <del>HAND/LEG</del> <del>NUMBNESS,</del> <del>R</del> <del>SIDE</del> <del>PAIN,</del> <del>STATES</del> <del>CHRONIC</del> <del>Chief</del> <del>Complaint</del> <del>Back</del> <del>Pain/Injury</del> <del>Invasive</del> <del>Line</del> <del>Maintenance</del> <del>10/28/20</del> <del>20:23</del> <del>Vital</del> <del>Signs</del> <del>10/28/20</del> <del>20:23</del> <del>Patient</del> <del>Safety</del> <del>Check</del> <del>10/28/20</del> <del>20:02</del> <del>Elopement</del> <del>Risk</del> <del>Assessment</del> <del>10/28/20</del> <del>20:02</del> <del>Aggression</del> <del>Rating</del> <del>Tool</del> <del>10/28/20</del> <del>20:02</del> <del>Pain</del> <del>Reassessment</del> <del>10/28/20</del> <del>20:01</del> <del>ED</del> <del>Patient</del> <del>Rounding</del> <del>10/28/20</del> <del>20:01</del> <del>IV</del> <del>Insertion</del> <del>10/28/20</del> <del>17:00</del> <del>Patient</del> <del>Belongings</del> <del>10/28/20</del> <del>17:00</del> <del>ED</del> <del>Back</del> <del>Pain/Injury</del> <del>Assessment</del> <del>10/28/20</del> <del>17:00</del> <del>Sepsis</del> <del>Screening</del> <del>10/28/20</del> <del>16:36</del> <del>Suicide</del> <del>Risk</del> <del>Assessment</del> <del>10/28/20</del> <del>16:36</del> <del>Fall</del> <del>Risk</del> <del>Assessment</del> <del>10/28/20</del> <del>16:36</del> <del>Initial</del> <del>Pain</del> <del>Assessment</del> <del>10/28/20</del> <del>16:36</del> <del>ED</del> <del>Triage</del> <del>Assessment</del> <del>10/28/20</del> <del>16:36</del> <del>ED</del> <del>Vital</del> <del>Signs</del> <del>with</del> <del>Sepsis</del> <del>10/28/20</del> <del>16:36</del> <del>DATE</del> <del>LOCATION/</del> <del>PROVIDER</del> <del>PROBLEM</del> <del>10/28/20</del> <del>Emergency</del> <del>Room</del> <del>Nelson Sharif</del> <del>T,</del> <del>MD</del> <del>Back</del> <del>Pain/Injury</del> <del>05/20/20</del> <del>Emergency</del> <del>Room</del> <del>Wale Carl</del> <del>L,</del> <del>DO</del> <del>Procedure</del> <del>and</del> <del>treatment</del> <del>not</del> <del>carried</del> <del>out</del> <del>due</del> <del>to</del> <del>patient</del> <del>leaving</del> <del>prior</del> <del>to</del> <del>being</del> <del>seen</del> <del>by</del> <del>health</del> <del>care</del> <del>provider</del> <del>Employment</del> <del>DISABLED</del> <del>DISABLED</del> <del>Disabled</del> <del>[place]</del> <del>Not</del> <del>Enrolled</del> <del>Preferred</del> <del>Phone</del> <del> </del> <del>Address</del> <del>[id number]</del> <del>[address]</del> <del>[address]</del> <del></del> <del>[place]</del> <del>[place],</del> <del>[place]</del> <del>[id number]</del> <del>Next</del> <del>of</del> <del>Kin</del> <del>Person</del> <del>to</del> <del>Notify</del> <del>YANY,</del> <del>KENAN</del> <del>(Daughter)</del> <del> </del> <del>Primary</del> <del>Insurance</del> <del>SELF</del> <del>PAY</del> <del>[employer]</del> <del>Pharmacy</del> <del>15</del> <del>(Preferred)</del> <del>No</del> <del>Data</del> <del>to</del> <del>Display</del> <del>No</del> <del>Data</del> <del>to</del> <del>Display</del> <del>Today</del> <del>Today</del> <del>Today</del> <del>Today</del> <del>Today</del> <del>Today</del> <del>Today</del> <del>Today</del> <del>Today</del> <del>Today</del> <del>Today</del> <del>Today</del> <del>Today</del> <del>Today</del> <del>Today</del> <del>Today</del> <del>Today</del> <del>Today</del> <del>Today</del> <del>Today</del> <del>Today</del> <del>Today</del> <del>Today</del> <del>Today</del> <del>Today</del> <del>Today</del> <del>Today</del> <del>Today</del> <del>Today</del> <del>Today</del> <del>Today</del> <del>11/18/19</del> <del>Today</del> <del>Today</del> <del>Today</del> <del>Today</del> <del>Today</del> <del>Today</del> <del>Today</del> <del>Today</del> <del>Today</del> <del>Today</del> <del>Today</del> <del>Today</del> <del>Today</del> <del>Today</del> <del>Today</del> <del>Today</del> <del>05/29/19</del> <del>Today</del> <del>Today</del> <del>05/29/19</del> <del>Today</del> <del>Today</del> <del>Today</del> <del>05/29/19</del> <del>05/29/19</del> <del>05/29/19</del> <del>05/29/19</del> <del>05/29/19</del> <del>05/29/19</del> <del>Today</del> <del>07/31/19</del> <del>Today</del> <del>Today</del> <del>Today</del> <del>No</del> <del>Active</del> <del>Problems</del> <del>on</del> <del>File</del> <del>No</del> <del>Data</del> <del>to</del> <del>Display</del> <del>10/24/20</del> <del>Today</del> <del>Today</del> <del>07/04/19</del> <del>Today</del> <del>07/31/19</del> <del>02/20/20</del> <del>No</del> <del>Data</del> <del>to</del> <del>Display</del> <del>Bowen Diaz</del> <del>D</del> <del>65,</del> <del>1955</del> <del>MRN#</del> <del>[id number]</del> <del>REG</del> <del>ER,</del> <del>Emergency</del> <del>Department</del> <del>ED</del> <del>12</del> <del>-Station</del> <del>1</del> <del>1.7m</del> <del>54.431kg</del> <del>BMI:</del> <del>18.8kg/m?</del> <del>Back</del> <del>Pain/Injury</del> <del>Search</del> <del>Chart</del> <del>No</del> <del>Data</del> <del>to</del> <del>Display</del> <del>1ST</del> <del>CURRENT</del> <del>Today</del> <del>Today</del> <del>16:36</del> <del>20:23</del> <del>*from</del> <del>earlier</del> <del>documentation</del> <del>No</del> <del>Data</del> <del>to</del> <del>Display</del> <del>Today</del> <del>16:56</del> <del>Today</del> <del>16:56</del> <del>Today</del> <del>16:56</del> <del>Today</del> <del>16:56</del> <del>Today</del> <del>16:56</del> <del>Today</del> <del>16:56</del> <del>Today</del> <del>16:56</del> <del>Today</del> <del>16:56</del> <del>Today</del> <del>16:56</del> <del>Today</del> <del>16:56</del> <del>Today</del> <del>16:56</del> <del>Today</del> <del>16:56</del> <del>Today</del> <del>16:56</del> <del>Today</del> <del>16:56</del> <del>Today</del> <del>16:56</del> <del>Today</del> <del>16:56</del> <del>Today</del> <del>16:56</del> <del>Today</del> <del>16:56</del> <del>Today</del> <del>16:56</del> <del>Today</del> <del>16:56</del> <del>Today</del> <del>16:56</del> <del>Today</del> <del>16:56</del> <del>Today</del> <del>16:56</del> <del>Today</del> <del>16:56</del> <del>Today</del> <del>16:56</del> <del>Today</del> <del>16:56</del> <del>Today</del> <del>16:56</del> <del>Today</del> <del>16:56</del> <del>Today</del> <del>16:56</del> <del>Today</del> <del>16:56</del> <del>Today</del> <del>16:56</del> <del>Today</del> <del>16:56</del> <del>Today</del> <del>16:56</del> <del>Today</del> <del>16:56</del> <del>Today</del> <del>16:56</del> <del>Today</del> <del>16:56</del> <del>Today</del> <del>16:56</del> <del>Today</del> <del>16:56</del> <del>Today</del> <del>16:56</del> <del>Today</del> <del>16:56</del> <del>Today</del> <del>18:23</del> <del>Today</del> <del>18:23</del> <del>Today</del> <del>18:23</del> <del>Today</del> <del>18:23</del> <del>Today</del> <del>18:23</del> <del>Today</del> <del>18:23</del> <del>Today</del> <del>18:23</del> <del>Today</del> <del>18:23</del> <del>Today</del> <del>18:23</del> <del>Today</del> <del>18:23</del> <del>Today</del> <del>18:23</del> <del>Today</del> <del>18:23</del> <del>Bowen Diaz</del> <del>D</del> <del>65</del> <del>M</del> <del>1955</del> <del>[facility]</del> <del>[facility]</del> <del>[facility]</del> <del>[place]</del> <del>Ave.</del> <del>[place]</del> <del>[place],</del> <del>[place]</del> <del>[id number]</del> <del>Magnetic</del> <del>Resonance</del> <del>Report</del> <del>Signed</del> <del>Patient:</del> <del>Bowen Diaz</del> <del>[facility]</del> <del>#:</del> <del>[id number]</del> <del>:</del> <del>8Acct#:[id number]</del> <del>Age/Sex:</del> <del>65</del> <del>/</del> <del>MADM</del> <del>Date:</del> <del>10/28/20</del> <del>Loc:</del> <del>ERRoom/Bed:</del> <del>Attending</del> <del>Dr:</del> <del>Ordering</del> <del>Provider/Ordering</del> <del>MD:</del> <del>Wale Carl</del> <del>L</del> <del>DO</del> <del>Date</del> <del>of</del> <del>Service:</del> <del>10/28/20</del> <del>Procedure(s):</del> <del>MR</del> <del>cervical</del> <del>spin</del> <del>wo</del> <del>con*</del> <del>[address]303</del> <del>[employer]ion</del> <del>Number(s):</del> <del>[id number]</del> <del>Report</del> <del>Number:</del> <del>[id number]</del> <del>PROCEDURE</del> <del>INFORMATION:</del> <del>Exam:</del> <del>MR</del> <del>Cervical</del> <del>Spine</del> <del>Without</del> <del>Contrast</del> <del>Exam</del> <del>date</del> <del>and</del> <del>time:</del> <del>10/28/2020</del> <del>6:45</del> <del>PM</del> <del>Age:</del> <del>65</del> <del>years</del> <del>old</del> <del>Clinical</del> <del>indication:</del> <del>Neck</del> <del>pain;</del> <del>Prior</del> <del>surgery;</del> <del>Surgery</del> <del>date:</del> <del>6+</del> <del>months;</del> <del>Surgery</del> <del>type:</del> <del>Cervical</del> <del>fusion</del> <del>w/</del> <del>cage;</del> <del>Additional</del> <del>info:</del> <del>Cervical</del> <del>stenosis,</del> <del>hypereflexia</del> <del>ue,</del> <del>loss</del> <del>muscle</del> <del>strength</del> <del>TECHNIQUE:</del> <del>Imaging</del> <del>protocol:</del> <del>Multiplanar</del> <del>magnetic</del> <del>resonance</del> <del>images</del> <del>of</del> <del>the</del> <del>cervical</del> <del>spine</del> <del>without</del> <del>contrast.</del> <del>COMPARISON:</del> <del>MRI</del> <del>Cervical</del> <del>Spine</del> <del>w/wo</del> <del>05328</del> <del>04/03/2019</del> <del>8:55</del> <del>AM</del> <del>FINDINGS:</del> <del>Vertebrae:</del> <del>Posterior</del> <del>fusion</del> <del>at</del> <del>C4-C5.</del> <del>No</del> <del>traumatic</del> <del>vertebral</del> <del>body</del> <del>height</del> <del>loss.</del> <del>Spinal</del> <del>cord:</del> <del>Long</del> <del>segment</del> <del>T2</del> <del>signal</del> <del>hyperintense</del> <del>lesion</del> <del>of</del> <del>the</del> <del>posterior</del> <del>cervical</del> <del>spinal</del> <del>cord</del> <del>in</del> <del>the</del> <del>midline</del> <del>which</del> <del>spans</del> <del>mid</del> <del>body</del> <del>of</del> <del>C2</del> <del>to</del> <del>the</del> <del>superior</del> <del>margin</del> <del>of</del> <del>T6</del> <del>which</del> <del>is</del> <del>significantly</del> <del>increased</del> <del>in</del> <del>size</del> <del>from</del> <del>prior.</del> <del>Spinal</del> <del>cord</del> <del>diameter</del> <del>is</del> <del>preserved</del> <del>and</del> <del>unchanged</del> <del>from</del> <del>prior.</del> <del>Spinal</del> <del>epidural</del> <del>space:</del> <del>No</del> <del>fluid</del> <del>collection</del> <del>in</del> <del>the</del> <del>epidural</del> <del>space.</del> <del>C1-C2:</del> <del>No</del> <del>change</del> <del>from</del> <del>prior.</del> <del>C2-C3:</del> <del>Mild</del> <del>posterior</del> <del>disc</del> <del>osteophyte</del> <del>complex</del> <del>stable</del> <del>from</del> <del>prior.</del> <del>No</del> <del>significant</del> <del>canal</del> <del>stenosis.</del> <del>Severe</del> <del>left</del> <del>foraminal</del> <del>stenosis.</del> <del>No</del> <del>significant</del> <del>right</del> <del>foraminal</del> <del>stenosis.</del> <del>C3-C4:</del> <del>Moderate</del> <del>disc</del> <del>height</del> <del>loss.</del> <del>Moderate</del> <del>broad-based</del> <del>posterior</del> <del>disc</del> <del>osteophyte</del> <del>complex.</del> <del>Mild</del> <del>canal</del> <del>stenosis.</del> <del>Moderate</del> <del>bilateral</del> <del>foraminal</del> <del>stenosis.</del> <del>C4-C5:</del> <del>Interval</del> <del>posterior</del> <del>decompression</del> <del>at</del> <del>C4-C5.</del> <del>Posterior</del> <del>decompression</del> <del>and</del> <del>fusion.</del> <del>No</del> <del>disc</del> <del>protrusion</del> <del>or</del> <del>extrusion.</del> <del>No</del> <del>spinal</del> <del>canal</del> <del>stenosis.</del> <del>Neural</del> <del>foramen</del> <del>are</del> <del>distorted</del> <del>by</del> <del>artifact</del> <del>and</del> <del>not</del> <del>well</del> <del>assessed.</del> <del>C5-C6:</del> <del>Mild</del> <del>to</del> <del>moderate</del> <del>disc</del> <del>height</del> <del>loss.</del> <del>Mild</del> <del>severity</del> <del>broad-based</del> <del>posterior</del> <del>disc</del> <del>osteophyte</del> <del>complex.</del> <del>Mild</del> <del>severity</del> <del>bilateral</del> <del>foraminal</del> <del>stenosis.</del> <del>Minimal</del> <del>canal</del> <del>stenosis.</del> <del>C6-C7:</del> <del>Moderate</del> <del>severity</del> <del>disc</del> <del>height</del> <del>loss.</del> <del>Mild</del> <del>severity</del> <del>broad-based</del> <del>posterior</del> <del>disc</del> <del>osteophyte</del> <del>complex.</del> <del>Moderately</del> <del>severe</del> <del>bilateral</del> <del>foraminal</del> <del>stenosis.</del> <del>Very</del> <del>mild</del> <del>spinal</del> <del>canal</del> <del>stenosis.</del> <del>C7-T1:</del> <del>No</del> <del>significant</del> <del>finding.</del> <del>Other</del> <del>bones/joints:</del> <del>No</del> <del>fractures.</del> <del>C4-C5</del> <del>anterolisthesis</del> <del>visible</del> <del>previously</del> <del>improved</del> <del>after</del> <del>surgery.</del> <del>Mild</del> <del>C5-C6</del> <del>anterolisthesis</del> <del>unchanged</del> <del>from</del> <del>prior.</del> <del>Soft</del> <del>tissues:</del> <del>Prevertebral</del> <del>soft</del> <del>tissues</del> <del>are</del> <del>unremarkable.</del> <del>No</del> <del>paraspinal</del> <del>fluid</del> <del>collection.</del> <del>Vertebral</del> <del>arteries:</del> <del>Expected</del> <del>flow</del> <del>voids</del> <del>in</del> <del>the</del> <del>vertebral</del> <del>arteries.</del> <del>ACCESSION</del> <del>#:</del> <del>[id number]</del> <del>MR/MR</del> <del>cervical</del> <del>spin</del> <del>wo</del> <del>con*</del> <del>[id number]</del> <del>IMPRESSION:</del> <del>1.</del> <del>Long</del> <del>cervical</del> <del>spinal</del> <del>cord</del> <del>lesion</del> <del>increased</del> <del>in</del> <del>size</del> <del>from</del> <del>comparison</del> <del>imaging.</del> <del>Nonspecific</del> <del>myelopathy</del> <del>changes.</del> <del>2.</del> <del>Postsurgical</del> <del>findings</del> <del>of</del> <del>C4-C5</del> <del>posterior</del> <del>decompression</del> <del>and</del> <del>posterior</del> <del>fusion.</del> <del>3.</del> <del>Multilevel</del> <del>spondyloarthropathy;</del> <del>details</del> <del>above.</del> <del>Dictated</del> <del>By:Keith Ayala</del> <del>Signed</del> <del>By:Negar Ayalaigned</del> <del>Date/Time:10/28/20</del> <del>1954</del> Critical Care Time Critical Care Time: Critical Care Time: Yes Total Critical Care Time: 45 Attestation: Neurosurgical problem Discharge Plan Discharge Patient Disposition: Home Clinical Impression: Incomplete spinal cord lesion Thoracic back pain Qualifiers: Chronicity: chronic Condition: Stable Prescriptions: New Reglan 10 mg tablet 10 mg PO Q6H PRN (Reason: nausea and vomiting) Qty: 20 RF: 2 diclofenac sodium 75 mg tablet,delayed release (DR/EC) 75 mg PO BID PRN (Reason: pain) Qty: 14 RF: 1 No Action Aspir-81 81 mg Tablet,Delayed Release (Dr/Ec) 81 mg PO DAILY RF: 0 ibuprofen 200 mg Tablet 400 mg PO PRN RF: 0 omeprazole 20 mg Capsule,Delayed Release(Dr/Ec) 20 mg PO DAILY RF: 0 Fish Oil Capsule 1 cap PO BID RF: 0 red yeast rice 600 mg Tablet 600 mg PO BID RF: 0 Emergen-C 500 mg Tablet,Chewable 1 tab PO DAILY RF: 0 [place] See Rx Instructions .ROUTE .COMPLEX RF: 0 Discharge Orders: Discharge ED (Routine); Ordered 10/28/20 Ordered By: Nelson Sharif Referrals: Marquise Hale DO [Physician] - 1-3 days (call for appointment time to follow up spinal cord lesion. If unable to see him, follow up with Dr. Hester at [facility].) Discharge Diet: Usual diet Discharge Activity: Resume usual activity Patient Instructions: Opioid Safety Coding Level of Care Code ED Thermal Technician for Chg Fwd Exam Comprehensive
[2020-10-28 17:40] LABS: Basophils # 0.1 10^3/uL (0.0-0.1); Basophils % 0.6 %; Eosinophils # 0.3 10^3/uL (0.0-0.8); Eosinophils % 2.5 %; Hemoglobin 14.2 g/dL (11.7-16.6); Lymphocytes # 4.9 10^3/uL (0.8-4.8); Lymphocytes % 42.6 %; Mean Corpuscular HGB Conc 33.8 g/dL (30.0-36.0); Mean Corpuscular Hemoglobin 31.5 pg (28.0-34.0); Mean Corpuscular Volume 93.1 fL (80-94); Mean Platelet Volume 9.7 fL (7.4-10.4); Monocytes # 0.7 10^3/uL (0.2-0.9); Monocytes % 5.7 %; Neutrophils # 5.51 10^3/uL (1.8-7.7); Neutrophils % 48.4 %; Nucleated Red Blood Cells % 0 %; Platelet Count 310 10^3/cmm (130-400); Red Blood Count 4.51 10^6/uL (4.1-5.3); Red Cell Distribution Width 12.3 % (12.1-15.1); White Blood Count 11.4 10^3/uL (4.0-10.0)
[2020-10-28 17:54] LABS: Alanine Aminotransferase 11 U/L (0-41); Albumin Level 3.9 g/dL (3.5-5.2); Alkaline Phosphatase 86 IU/L (40-130); Anion Gap 13.4 (5-19); Aspartate Amino Transferase 17 U/L (0-40); Blood Urea Nitrogen 3 mg/dL (8-23); Calcium 8.6 mg/dL (8.5-10.5); Carbon Dioxide 30 mmol/L (22-29); Chloride 98 mmol/L (98-107); Globulin 2.4 g/dL (1.3-4.6); Glomerular Filtration Rate 136.1 mL/min (90-130); Glucose 117 mg/dL (65-115); Osmolality Calculated 284 mOsm/kg (285-295); Potassium 3.4 mmol/L (3.5-5.1); Sodium 138 mmol/L (136-145); Total Bilirubin 0.4 mg/dL (0.15-1.2); Total Protein 6.3 g/dL (6.6-8.7)
--- NOTE | 2020-10-28 17:54 | XRR_ITS ---
PROCEDURE INFORMATION: Exam: XR Thoracic Spine Exam date and time: 10/28/2020 6:32 PM Age: 65 years old Clinical indication: Pain in thoracic spine; Patient HX: Chronic pain TECHNIQUE: Imaging protocol: XR of the thoracic spine. Views: 3 views. Other technique: AP and lateral views and a swimmer's lateral view of the thoracic spine are submitted. COMPARISON: MRI Thoracic Spine w/o* [id number] 11/09/2018 11:54 PM FINDINGS: Bones/joints: Diffuse osteopenia. Degenerative disk disease predominating at mid-lower thoracic spine disk levels. Thoracic spine vertebral body marginal osteophytes are noted at multiple levels. Multilevel midthoracic spine mild vertebral body compression deformities which appears similar to prior study. Bilateral mid cervical spinal posterior fixation hardware. Soft tissues: Unremarkable. Vasculature: Moderate aortic arch atherosclerotic calcification without ectasia. XR/XR thoracic spine 3V* [id number] IMPRESSION: 1. Degenerative changes as above. 2. No acute thoracic spinal bony abnormality identified.
[2020-10-28 17:57] LABS: Creatinine Clr Calc Pharmacy 97.0182
[2020-10-28 18:30] VITALS: RESP 18; O2SAT 98
[2020-10-28] MEDS: morphine 4 mg/mL SDV 1 mL IVP (18:30)
[2020-10-28 18:38] LABS: Add Urine Microscopic? NO; Charge for UA Resulting for Rev
[2020-10-28 18:49] LABS: Bilirubin Urine Neg (Negative); Blood Urine Neg (Negative); Glucose Urine UA Norm (Normal); Ketones Urine Negative (Negative); Leukocyte Esterase Urine Negative (Negative); Nitrate Urine Negative (Negative); Protein Urine Neg (Negative); Urine Appearance Clear (CLEAR); Urine Color Straw (Yellow); Urobilinogen Urine Norm (Negative); pH Urine 7 (5-7)
--- NOTE | 2020-10-28 20:02 | PC.NURSE ---
patient back from MRI and now to xray
[2020-10-28] MEDS: HYDROmorphone 1 mg/mL INJ 1 mL 0.5 MG IVP ×2 (20:21→21:56)
[2020-10-28 20:23] VITALS: PULSE 50; RESP 19; O2SAT 97
[2020-10-28] MEDS: ondansetron 2 mg/ML SDV 2 mL 4 MG IVP (21:38)
[2020-10-28 21:41] LABS: SARS Covid-2 Antigen Negative (Negative)
--- NOTE | 2020-10-30 09:18 | DCPLANNER ---
hotel office manager had message to schedule a follow up appointment for patient with ortho. hotel office manager called the ortho clinic, spoke with Violetta, gave clinic patients information. hotel office manager was told that patients information would be printed and reviewed. Clinic will call patient with appointment information.
--- NOTE | 2020-11-01 13:38 | DCPLANNER ---
Patient had a follow up appointment scheduled for 10.31.[address] Hale at [facility] - patient did attend appointment.
== END 2020-10-28 22:24 | disposition home or self-care (01) ==
PROVIDERS: Family Medicine; Emergency Provider Family Medicine
DX: G95.89 Other specified diseases of spinal cord (principal); G89.29 Other chronic pain; M54.6 Pain in thoracic spine; Z79.82 Long term (current) use of aspirin; F17.210 Nicotine dependence, cigarettes, uncomplicated
CPT/HCPCS: 72072; 72141; 72148; 80053; 81003; 85025; 87426; 96374; 96375; 96376; 99283; J1170; J2270; J2405

== ENCOUNTER → 2020-10-31 16:04 | Outpatient (BNVA) | payer SELFPAY | PROVIDERS: Visit Provider Orthopaedic Surgery | DX: M54.9 Dorsalgia, unspecified (principal); M54.6 Pain in thoracic spine | CPT/HCPCS: 72120 ==

== ENCOUNTER 2020-11-12 09:29 | Outpatient (CLI) | payer SELFPAY ==
--- NOTE | 2020-11-12 09:30 | MR_ITS ---
WS: [id number] MRI THORACIC SPINE without contrast. HISTORY: J86.9 - Pyothorax without fistula COMPARISON: 11/09/2018 TECHNIQUE: Multiplanar sequences are performed in sagittal and axial planes. Mild increase in thoracic kyphosis and RIGHT curvature. Mild anterior wedging of T6, T7, T8 and T9. T here is edema within the L3 vertebral body that was noted on the prior lumbar MRI. Chronic endplate c hanges with edema at T7-8. There is disc space narrowing and desiccation throughout the lumbar spine. No syrinx, cord enlargement or atrophy. T1-2: Mild facet arthritis. Mild foraminal narrowing. T2-3: Mild bilateral foraminal narrowing due to facet arthritis. T3-4: Central disc protrusion and mild osteophytic ridging and facet arthritis. Moderate RIGHT and m ild LEFT foraminal stenosis. T4-5: Central disc protrusion. Moderate bilateral foraminal stenosis. T5-6: Minimal facet arthritis. T6-7: Moderate sized central disc protrusion causing mild contact upon the ventral thecal sac and mi ld foraminal narrowing. T7-8: Shallow central disc protrusion with bilateral facet arthritis and foraminal narrowing. T8-9: Moderate central disc protrusion without cord contact. T9-10: Normal. T10-11: Moderate sized LEFT paracentral disc protrusion very slightly contacting the LEFT thecal sac and cord with mild deformity. Mild bilateral foraminal stenosis, LEFT greater than RIGHT. T11-12: Very shallow RIGHT paracentral disc protrusion and mild facet arthritis. MR/MR thoracic spin wo con* [id number] IMPRESSION: 1. Advanced thoracic spondylitic changes. Chronic anterior compression deformi ties are mild from T6 through T9 which were present on the prior study from 201 9. 2. L3 marrow edema previously described on a prior lumbar MRI. 3. Multi focal areas of central stenosis and disc protrusions as above. Most s ignificant foraminal stenosis on the RIGHT at T3, bilaterally at T4-5. 4. Central disc protrusion at T3-4, T4-5, moderate central disc protrusion at T6-7, T8-9 and moderate LEFT paracentral disc protrusion at T10-11. Disc protru sions have not significantly progressed since the prior study.
== END 2020-11-12 09:30 | disposition home or self-care (01) ==
PROVIDERS: Visit Provider Orthopaedic Surgery
DX: J86.9 Pyothorax without fistula (principal); M51.24 Other intervertebral disc displacement, thoracic region; R60.0 Localized edema
CPT/HCPCS: 72146

== ENCOUNTER 2022-10-05 13:47 | Outpatient (CLI) | payer MEDICARE, BC, SELFPAY ==
--- NOTE | 2022-10-05 14:00 | MR_ITS ---
WS: [id number] MRI LUMBAR SPINE NONCONTRAST TECHNIQUE: Sagittal T1, T2 and STIR imaging. Axial T1 and T2 imaging. CLINICAL INFORMATION: MYELOPATHY COMPARISON: October 28, 2020 FINDINGS: Mild lumbar curve. No acute compression. Disc space narrowing worse at L3-L4 and L4-L5 L1-L2: Mild facet arthropathy. Spinal canal and foramen are patent. L2-L3: No significant disc bulging. Mild facet arthropathy. Spinal canal and foramen are patent. L3-L4: Disc bulging in combination with facet arthropathy ligamentum flavum flavum hypertrophy result s in severe central canal stenosis with impingement on the traversing L4 nerve roots bilaterally. Mod erate facet arthropathy. Severe bilateral bony foraminal narrowing. This is similar to previous. L4-L5: Mild annular bulging with impingement LEFT subarticular recess and traversing LEFT L5 nerve ro ot. Mild to moderate central canal stenosis. This is progressed compared to previous. Moderate facet arthropathy. Moderate to severe LEFT and mild RIGHT bony foraminal narrowing. L5-S1: Mild annular bulging. Spinal canal and foramen are patent. Moderate facet arthropathy. Visualized pelvic bony structures: Normal. Paravertebral soft tissues: Normal. MR/MR lumbar spine wo con* [id number] IMPRESSION: 1. Mild lumbar curve. No acute compression. Disc space narrowing worse at L3-L 4 L4-L5. 2. Severe central canal stenosis L3-L4 appears stable compared to previous wit h impingement traversing L4 nerve roots bilaterally. Severe bilateral foraminal narrowing at this level. 3. Mild to moderate central canal stenosis L4-L5 impinges the traversing LEFT L5 nerve root in the subarticular recess. This is new from previous. Moderate t o severe LEFT L4-L5 foraminal narrowing. 4. Moderate facet arthropathy L3-L5.
--- NOTE | 2022-10-05 14:00 | MR_ITS ---
WS: [id number] MRI CERVICAL SPINE NONCONTRAST TECHNIQUE: Sagittal T1, T2 and STIR imaging. Axial T2, gradient, and fiesta imaging. CLINICAL INFORMATION: MYELOPATHY COMPARISON: 2020 FINDINGS: Previously described signal abnormality in the dorsal cervical cord has improved compared to previous . Residual myelomalacia at the C5 level is unchanged. Small amount of residual signal abnormality in the dorsal cervical cord C2-C6 best appreciated on the axial imaging Prior postoperative changes dorsal fusion at C4-C5 with susceptibility artifact. Decompressive melvina ctomies in the cervical spine. C2-C3: Moderate facet arthropathy. Moderate LEFT bony foraminal narrowing. Spinal canal is patent. C3-C4: Slight anterolisthesis. Mild disc osteophyte complex. Moderate LEFT and no significant RIGHT b dayna foraminal narrowing. Spinal canal is patent. C4-C5: Slight anterolisthesis C4 on C5. Foramen are not well visualized due to susceptibility artifac t from posterior fusion hardware. Spinal canal is patent. C5-C6: Slight anterolisthesis. Mild bilateral bony foraminal narrowing. Spinal canal is patent. C6-C7: Slight retrolisthesis with mild disc osteophyte complex eccentric to the LEFT. Severe LEFT and moderate RIGHT bony foraminal narrowing. Moderate facet arthropathy. Spinal canal is patent. C7-T1: Mild bilateral bony foraminal narrowing. Spinal canal is patent. Visualized brain stem structures: Normal. Prevertebral soft tissues: Normal. MR/MR cervical spin wo con* [id number] IMPRESSION: 1. Previously described signal abnormality in the cervical cord has improved c ompared to previous. Residual myelomalacia most prominent at the C5 level. 2. Prior dorsal fusion C4-C5 with susceptibility artifact and decompressive la minectomy defects. 3. Disc osteophyte complex worse at C6-C7 with severe LEFT C6-C7 bony foramina l narrowing. This appears similar to previous. Moderate RIGHT bony foraminal na rrowing at this level. Spinal canal remains patent. 4. Mild bilateral bony foraminal narrowing C5-C6. 5. No other significant changes from previous.
--- NOTE | 2022-10-05 14:00 | MR_ITS ---
WS: [id number] MRI THORACIC SPINE WITHOUT CONTRAST TECHNIQUE: Sagittal T1, T2 and STIR imaging. Axial T2 imaging. Noncontrast imaging obtained. CLINICAL INFORMATION: MYELOPATHY COMPARISON: 2020 FINDINGS: Moderate thoracic kyphosis. No acute compression. Chronic anterior wedging in the mid thoracic spine at T6-T8 with endplate Schmorl's nodes is unchanged. Small disc protrusions most prominent at T3-T4, T6-T7, and T10-T11 similar in appearance to previous. Small central protrusion at T6-T7 with mild central canal stenosis and slight contact of the thoracic cord unchanged. Tiny central protrusions at T7-T8 and T8-T9. LEFT pericentral protrusion T10-T11 with indentation on the thoracic cord with mild central canal florecita nosis is unchanged. Shallow RIGHT pericentral protrusion T11-T12. Moderate facet arthropathy worse in the lower thoracic spine. Mild bony foraminal narrowing worse at RIGHT T3-T4 and bilateral T4-T5 unchanged. Cord signal is normal. No syrinx within the thoracic cord. MR/MR thoracic spin wo con* [id number] IMPRESSION: 1. No significant changes compared to 2020. 2. Moderate thoracic kyphosis with chronic anterior wedging in the mid thoraci c spine. No acute compression fractures. 3. Small disc protrusions most prominent at T3-T4, T6-T7, and T10-T11 unchange d from previous. 4. Cord signal is normal. No syrinx within the thoracic cord. 5. Moderate facet arthropathy worse in the lower thoracic spine.
== END 2022-10-05 13:48 | disposition home or self-care (01) ==
LOC: RAD 13:53
PROVIDERS: Visit Provider Nurse Practitioner Family
DX: G95.9 Disease of spinal cord, unspecified (principal); M47.894 Other spondylosis, thoracic region; M51.24 Other intervertebral disc displacement, thoracic region; M48.061 Spinal stenosis, lumbar region without neurogenic claudication; M47.816 Spondylosis without myelopathy or radiculopathy, lumbar region; M48.02 Spinal stenosis, cervical region; M25.70 Osteophyte, unspecified joint
CPT/HCPCS: 72141; 72146; 72148

== ENCOUNTER 2022-10-05 16:23 | Emergency (ER) | payer MEDICARE, BC, SELFPAY ==
[2022-10-05 16:37] VITALS: BP 99/62; PULSE 63; RESP 16; TEMP 37; O2SAT 99
[2022-10-05 18:11] VITALS: PULSE 68; RESP 16; O2SAT 97
[2022-10-05 18:28] LABS: Basophils % 0.2 %; Eosinophils # 0.1 10^3/uL (0.0-0.8); Eosinophils % 0.5 %; Hematocrit 43.7 % (42.0-52.0); Hemoglobin 14.7 g/dL (11.7-16.6); Lymphocytes # 2.9 10^3/uL (0.8-4.8); Lymphocytes % 22.4 %; Mean Corpuscular HGB Conc 33.6 g/dL (30.0-36.0); Mean Corpuscular Hemoglobin 31.3 pg (28.0-34.0); Mean Platelet Volume 9.2 fL (7.4-10.4); Monocytes # 0.9 10^3/uL (0.2-0.9); Monocytes % 6.7 %; Neutrophils # 9.07 10^3/uL (1.8-7.7); Nucleated Red Blood Cells % 0 %; Platelet Count 233 10^3/cmm (130-400); Red Cell Distribution Width 12.4 % (12.1-15.1)
[2022-10-05 18:45] LABS: Alanine Aminotransferase 8 U/L (0-41); Albumin Level 3.9 g/dL (3.5-5.2); Alkaline Phosphatase 83 U/L (40-130); Anion Gap 14.2 (5-19); Aspartate Amino Transferase 16 U/L (0-40); Blood Urea Nitrogen 10 mg/dL (8-23); Calcium 8.9 mg/dL (8.5-10.5); Carbon Dioxide 29 mmol/L (22-29); Chloride 98 mmol/L (98-107); Creatinine Clr Calc Pharmacy 64.9674; Globulin 3.1 g/dL (1.3-4.6); Glomerular Filtration Rate 135.2 mL/min (90-130); Glucose 104 mg/dL (65-115); Lipase 17 U/L (13-60); Magnesium 1.7 mg/dL (1.7-2.3); Osmolality Calculated 285 mOsm/kg (285-295); Potassium 3.2 mmol/L (3.5-5.1); Sodium 138 mmol/L (136-145); Total Bilirubin 0.6 mg/dL (0.15-1.2)
[2022-10-05 18:56] VITALS: BP 101/61; PULSE 67; O2SAT 99
--- NOTE | 2022-10-05 19:29 | CTR_ITS ---
PROCEDURE INFORMATION: Exam: CT Abdomen And Pelvis With Contrast Exam date and time: 10/05/2022 8:00 PM Age: 67 years old Clinical indication: Nausea and vomiting; Abdominal pain; Generalized; Patient HX: C/O diffuse abd pain with n/v/d. Unintentional weight loss. ; Additional info: Abd pain, n/v/d TECHNIQUE: Imaging protocol: Computed tomography of the abdomen and pelvis with contrast. Radiation optimization: All CT scans at this facility use at least one of these dose optimization techniques: automated exposure control; mA and/or kV adjustment per patient size (includes targeted exams where dose is matched to clinical indication); or iterative reconstruction. Contrast material: OMNI 350; Contrast volume: 100 ml; Contrast route: INTRAVENOUS (IV); REPORTING DATA: Count of CT and Cardiac NM exams in prior 12 months: This patient has received 0 known CTs and 0 known cardiac nuclear medicine studies in the 12 months prior to the current study. COMPARISON: CT kidney stone [id number] 05/29/2019 9:51 PM RADIATION DOSE METRICS: Total DLP (mGy-cm): 293.93 FINDINGS: Lungs: Lung bases are clear. Liver: Few scattered tiny hypodensities within the liver too small at a adequately characterized but statistically likely benign. Gallbladder and bile ducts: Normal. No calcified stones. No ductal dilation. Pancreas: Unremarkable. Main pancreatic duct is not significantly dilated. Spleen: Normal. No splenomegaly. Adrenal glands: Normal. No mass. Kidneys and ureters: Normal. No hydronephrosis. Stomach and bowel: There are diffuse plantar barbra bowel changes throughout the colon with moderate colonic wall thickening and adjacent vascular engorgement with relatively preserved pericolonic fat planes consistent with diffuse colitis. Consider C diff colitis is etiology. Trace amount of pelvic ascites that may be secondary to colitis. Appendix: No evidence of acute appendicitis. Intraperitoneal space: See Stomach and bowel finding. Vasculature: Abdominal aorta and iliac vessels are diffusely calcified. There is no aortic aneurysm. Lymph nodes: Unremarkable. No enlarged lymph nodes. Urinary bladder: There is mild-moderate circumferential bladder wall thickening progressed from previous exam possibly due to cystitis or chronic bladder outlet obstruction syndrome. Reproductive: Prostate gland is mildly enlarged. Bones/joints: Advanced degenerative endplate changes L3-L4 stable from previous exam. No acute bony abnormalities. Soft tissues: Unremarkable. CT/CT abdomen pelvis w con* [id number] IMPRESSION: 1. Findings consistent with diffuse colitis involving entire large bowel. 2. Mild prostate enlargement with diffuse bladder wall thickening progressed from previous exam as discussed above. 3. Trace pelvic free fluid presumed secondary to the bowel wall changes. 4. Additional nonemergent findings as above.
--- NOTE | 2022-10-05 19:30 | ED_ITS ---
HPI - Abdominal Pain General: Chief Complaint: Abdominal Pain Stated Complaint: states sent here for fluids Time Seen by Provider: 10/05/22 17:07 History of Present Illness: Patient presents here with complaints of abdominal pain with nausea vomiting diarrhea. Patient says this been going on over the last month. Patient says he is lost a lot of weight. Patient says anytime he takes anything in orally comes right back up right at the other end. MD elicited complaint: abdominal pain Pertinent past history: gastrointestinal bleeding Onset (ago): month(s) (Approximately 1 month ago) Pain Consistency: constant Location: Diffuse Quality: aching Exacerbating factors: eating Relieving factors: nothing Associated Symptoms: Reports diarrhea, nausea and vomiting; Denies chills and fever(s) Review of Systems General: Reports: 10 or more systems reviewed and unremarkable except in HPI and below Const: Denies: fever(s) or chills Eyes: Denies: change in vision ENMT: Denies: throat pain Card: Denies: chest pain, palpitations or irregular heart rhythm GI: Reports: abdominal pain, nausea, vomiting and diarrhea : Denies: flank pain or difficulty urinating Musc: Denies: neck pain or back pain Skin/Breast: Denies: rash or pruritus Neuro: Denies: headache(s) or numbness in extremities Psych: Denies: anxiety or depression Endo: Denies: polyuria or polydipsia PFSH ED PFSH: Family History Mother Diabetes Cancer Thyroid and Espohageal Arthritis Social History Smoking and tobacco status: current every day smoker Alcohol intake: never Lives independently: Yes Household members: none Marital status: Legally Physical Exam Const: COMMON NORMALS: no acute distress, average body habitus, patient oriented x3, no limitations, healthy appearing, alert and well nourished HENMT: COMMON NORMALS: normocephalic, atraumatic, hearing grossly normal bilaterally, external ears normal and moist oral mucous membranes HEAD & SCALP: normocephalic and atraumatic EXTERNAL EAR: Yes external ears normal Eye: COMMON NORMALS: Equal, round and reactive pupils present, EOMs intact bilaterally, conjunctivae normal and no scleral icterus CONJUNCTIVA: Yes conjunctivae normal PUPIL: Yes Equal, round and reactive pupils present Neck/C-Spine: COMMON NORMALS: full ROM, no lymphadenopathy, supple, no JVD and Thyroid normal THYROID: Thyroid normal Chest: COMMONS NORMALS: normal inspection of the chest and normal palpation of entire chest wall Resp: COMMON NORMALS: normal respiratory effort, No retractions, No use of accessory muscles and clear to auscultation bilaterally AUSCULTATION: clear to auscultation bilaterally Cardio: COMMON NORMALS: no JVD GI: COMMON NORMALS: Soft to palpation INSPECTION: Yes normal to inspection AUSCULTATION: Yes normoactive bowel sounds PALPATION: Yes Soft to palpation, Yes Tenderness to palpation present (GI) Details: LLQ, RLQ, LUQ and RUQ, No Hepatomegaly present, No Splenomegaly present, No Pulsatile mass present and No Rebound tenderness present : COMMON NORMALS: Yes no CVA tenderness BLADDER/KIDNEY EXAM: Yes no CVA tenderness Back/Pelvis: COMMON NORMALS: no CVA tenderness Neuro: COMMON NORMALS: patient oriented x3, CN's II-XII intact bilaterally, moves all extremities, no focal motor deficits and no sensory deficits noted SENSORIUM/ORIENTATION: Yes alert Psych: COMMON NORMALS: mental status grossly normal, Normal thought process present, cooperative, normal affect, speech normal and activity/motor behavior normal SPEECH: Yes normal speech THOUGHT PROCESS: Normal thought process present Course Vital Signs: Vital signs: Vital Signs Temperature 98.6 F 10/05/22 16:37 Pulse Rate 67 10/05/22 18:56 Respiratory Rate 16 10/05/22 18:11 Blood Pressure 101/61 10/05/22 18:56 Pulse Oximetry 99 10/05/22 18:56 Oxygen Delivery Me thod 10/05/22 18:56 MDM - Abdominal Pain Medical Decision Making Patient presents to the ER with complaints of nausea vomiting and diarrhea multiple times over the last month. Patient states he is unable to keep anything down by mouth or he stays down and he has diarrhea. Upon physical exam of the patient as well as review of the blood work and CT scan that showed white blood cell count of 13,000 potassium 3.2 and diffuse colitis patient was given IV fluids as well as IV Cipro and Flagyl. Patient was not enthused about being admitted to the hospital and wanted to try everything he could on an outpatient basis. It is felt that the patient may tolerate oral antibiotics with Zofran use. Patient is to follow-up with his family practice doctor in approximately 1 week for further evaluation and treatment. If patient cannot use this regimen he should return to the ER for possible admission. Differential Diagnosis Likely abdominal pain and gastroenteritis Lab Data 10/05/22 18:15 10/05/22 18:15 Labs/Radiology: Radiology Impressions Abdomen/Pelvis CT 10/05/22 19:29 IMPRESSION: 1. Findings consistent with diffuse colitis involving entire large bowel. 2. Mild prostate enlargement with diffuse bladder wall thickening progressed from previous exam as discussed above. 3. Trace pelvic free fluid presumed secondary to the bowel wall changes. 4. Additional nonemergent findings as above. Laboratory Results WBC 13.0 10^3/uL (4.0-10.0) H 10/05/22 18:15 RBC 4.70 10^6/uL (4.1-5.3) 10/05/22 18:15 Hgb 14.7 g/dL (11.7-16.6) 10/05/22 18:15 Hct 43.7 % (42.0-52.0) 10/05/22 18:15 MCV 93.0 fl (80-94) 10/05/22 18:15 MCH 31.3 pg (28.0-34.0) 10/05/22 18:15 MCHC 33.6 g/dL (30.0-36.0) 10/05/22 18:15 RDW 12.4 % (12.1-15.1) 10/05/22 18:15 Plt Count 233 10^3/cmm (130-400) 10/05/22 18:15 MPV 9.2 fL (7.4-10.4) 10/05/22 18:15 Neut % (Auto) 70.0 % 10/05/22 18:15 Lymph % (Auto) 22.4 % 10/05/22 18:15 [place] % (Auto) 6.7 % 10/05/22 18:15 Eos % (Auto) 0.5 % 10/05/22 18:15 Baso % (Auto) 0.2 % 10/05/22 18:15 Neut # (Auto) 9.07 10^3/uL (1.8-7.7) H 10/05/22 18:15 Lymph # (Auto) 2.9 10^3/uL (0.8-4.8) 10/05/22 18:15 [place] # (Auto) 0.9 10^3/uL (0.2-0.9) 10/05/22 18:15 Eos # (Auto) 0.1 10^3/uL (0.0-0.8) 10/05/22 18:15 Baso # (Auto) 0.0 10^3/uL (0.0-0.1) 10/05/22 18:15 Nucleated RBC % (auto) 0 % 10/05/22 18:15 Nucleated RBCs # 0.0 /100WBC 10/05/22 18:15 Sodium 138 mmol/L (136-145) 10/05/22 18:15 Potassium 3.2 mmol/L (3.5-5.1) L 10/05/22 18:15 Chloride 98 mmol/L (98-107) 10/05/22 18:15 Carbon Dioxide 29 mmol/L (22-29) 10/05/22 18:15 Anion Gap 14.2 (5-19) 10/05/22 18:15 BUN 10 mg/dL (8-23) 10/05/22 18:15 Creatinine 0.6 mg/dL (0.7-1.2) L 10/05/22 18:15 GFR Calculation 135.2 mL/min (90-130) H 10/05/22 18:15 Glucose 104 mg/dL (65-115) 10/05/22 18:15 Calculated Osmolality 285 mOsm/kg (285-295) 10/05/22 18:15 Calcium 8.9 mg/dL (8.5-10.5) 10/05/22 18:15 Magnesium 1.7 mg/dL (1.7-2.3) 10/05/22 18:15 Total Bilirubin 0.6 mg/dL (0.15-1.2) 10/05/22 18:15 AST 16 U/L (0-40) 10/05/22 18:15 ALT 8 U/L (0-41) 10/05/22 18:15 Alkaline Phosphatase 83 U/L (40-130) 10/05/22 18:15 Total Protein 7.0 g/dL (6.6-8.7) 10/05/22 18:15 Albumin 3.9 g/dL (3.5-5.2) 10/05/22 18:15 Globulin 3.1 g/dL (1.3-4.6) 10/05/22 18:15 Lipase 17 U/L (13-60) 10/05/22 18:15 Urine Color Yellow (Yellow) 10/05/22 20:45 Urine Appearance Clear (CLEAR) 10/05/22 20:45 Urine pH 7 (5-7) 10/05/22 20:45 Ur Specific [place] 1.010 (1.005-1.030) 10/05/22 20:45 Urine Protein Neg (Negative) 10/05/22 20:45 Urine Glucose (UA) Norm (Normal) 10/05/22 20:45 Urine Ketones Negative (Negative) 10/05/22 20:45 Urine Blood 2+ (Negative) H 10/05/22 20:45 Urine Nitrate Negative (Negative) 10/05/22 20:45 Urine Bilirubin Neg (Negative) 10/05/22 20:45 Urine Urobilinogen Norm mg/dL (Negative) 10/05/22 20:45 Ur Leukocyte Esterase Negative (Negative) 10/05/22 20:45 Urine RBC 0-4 /hpf (0-2) H 10/05/22 20:45 Urine WBC 0-4 /hpf (0-5) H 10/05/22 20:45 Ur Squamous Epith Cells 0-4 /hpf (0-5) H 10/05/22 20:45 Amorphous Sediment Not Reportable 10/05/22 20:45 Urine Bacteria Trace /hpf (NONE) 10/05/22 20:45 Discharge Plan Discharge Patient Disposition: Home Clinical Impression: Colitis, Nausea vomiting and diarrhea Condition: Stable Prescriptions: New ciprofloxacin HCl [Cipro] 500 mg tablet 500 mg PO BID Qty: 20 0RF metronidazole 500 mg tablet 500 mg PO BID 10 Days Qty: 20 0RF ondansetron 4 mg tablet,disintegrating 4 mg PO Q8H PRN (Reason: nausea and vomiting) Qty: 14 0RF No Action hydrocodone-acetaminophen 5-325 mg tablet 1 tab PO BID PRN (Reason: pain) 15 Days Qty: 30 0RF Aspir-81 81 mg Tablet,Delayed Release (Dr/Ec) 81 mg PO DAILY ibuprofen 200 mg Tablet 400 mg PO PRN omeprazole 20 mg Capsule,Delayed Release(Dr/Ec) 20 mg PO DAILY Fish Oil Capsule 1 cap PO BID red yeast rice 600 mg Tablet 600 mg PO BID Emergen-C 500 mg Tablet,Chewable 1 tab PO DAILY [place] See Rx Instructions .ROUTE .COMPLEX Rx Instructions: pt states this was an old rx-pt states he is unsure of the mg-pt states he only took 1/2 tab last night 10/27/20 Reglan 10 mg tablet 10 mg PO Q6H PRN (Reason: nausea and vomiting) Qty: 20 2RF diclofenac sodium 75 mg tablet,delayed release (DR/EC) 75 mg PO BID PRN (Reason: pain) Qty: 14 1RF Discharge Orders: Discharge ED (Routine); Ordered 10/05/22 Ordered By: Marco A Garcia Referrals: Galilea Rose DO [Primary Care Provider] - 1 week Discharge Diet: Advance as tolerated and Full LIquid Discharge Activity: Resume usual activity Patient Instructions: Colitis (ED), Acute Nausea and Vomiting (DC), Acute Diarrhea (ED) Coding Level of Care Code ED Loss Control Consultant for Jim Solis
[2022-10-05] MEDS: sodium chloride 0.9% 1,000 ML 999 ML IV (19:39)
[2022-10-05] MEDS: ondansetron 2 mg/ML SDV 2 mL 4 MG IVP (19:40)
[2022-10-05] MEDS: iohexol 350 mg/mL 500 mL Btl (per mL) IV (20:05)
[2022-10-05] MEDS: metroNIDAZOLE IV 500 MG/100 ML PREMIX 100 MG IV (20:44)
[2022-10-05 21:02] LABS: Add Urine Culture? No; Add Urine Microscopic? YES; Bacteria Urine TRACE /hpf; Bilirubin Urine Neg (Negative); Blood Urine 2+ (Negative); Glucose Urine UA Norm (Normal); Ketones Urine Negative (Negative); Leukocyte Esterase Urine Negative (Negative); Nitrate Urine Negative (Negative); Protein Urine Neg (Negative); RBC Urine 0-4 /hpf (0-2); Squamous Epithelial Cell Urine 0-4 /hpf (0-5); Urine Appearance Clear (CLEAR); Urine Color Yellow (Yellow); Urobilinogen Urine Norm (Negative); WBC Urine 0-4 /hpf (0-5); pH Urine 7 (5-7)
[2022-10-05] MEDS: ciprofloxacin 400 MG/200 ML PREMIX 200 MG IV (21:50)
== END 2022-10-05 22:58 | disposition home or self-care (01) ==
PROVIDERS: Family Medicine; Emergency Provider Emergency Medicine; PCP Family Medicine
DX: K52.9 Noninfective gastroenteritis and colitis, unspecified (principal); Z79.82 Long term (current) use of aspirin; F17.210 Nicotine dependence, cigarettes, uncomplicated
CPT/HCPCS: 36415; 74177; 80053; 81001; 83690; 83735; 85025; 96365; 96367; 96375; 99285; J0744; J2405; J3490; J7030; Q9967

== ENCOUNTER 2023-01-06 12:20 | Outpatient (CLI) | payer MEDICARE, BC, SELFPAY ==
--- NOTE | 2023-01-06 12:30 | USR_ITS ---
PROCEDURE INFORMATION: Exam: US Duplex Lower Extremity Veins, Bilateral Exam date and time: 01/06/2023 1:30 PM Age: 67 years old Clinical indication: Edema, localized; Lower extremity, bilateral; Additional info: Bilateral lower extremity edema TECHNIQUE: Imaging protocol: Real-time duplex ultrasound of the bilateral extremities with 2-D martínez scale, color Doppler flow and spectral waveform analysis including responses to compression and other maneuvers (when performed) with image documentation. Complete exam focused on the lower extremity veins. COMPARISON: CT abdomen pelvis w con* [id number] 10/05/2022 8:00 PM FINDINGS: Right deep veins: Unremarkable. The common femoral, femoral, proximal profunda femoral and popliteal veins are patent without thrombus. Normal Doppler waveforms. Normal compressibility and/or augmentation response. Right superficial veins: Saphenofemoral junction is patent without thrombus. Left deep veins: Unremarkable. The common femoral, femoral, proximal profunda femoral and popliteal veins are patent without thrombus. Normal Doppler waveforms. Normal compressibility and/or augmentation response. Left superficial veins: Saphenofemoral junction is patent without thrombus. Soft tissues: Unremarkable. US/[place] [id number] IMPRESSION: No evidence of deep vein thrombosis.
--- NOTE | 2023-01-06 12:31 | USCV_ITS ---
Bowen Diaz Age: 67 Gender: M : 1955 Exam Date: 01/06/2023 13:34 Ordering Phys: Galilea Rose DO Technologist: Dewey Aden Mri Supervisor [place] [facility] [place]: PVD RIGHT LEFT Brachial 140.00 mmHg Brachial 152.00 mmHg Pressure (mmHg) Waveform Pressure (mmHg) Waveform 123.00 [employer] 134.00 122.00 DPA 135.00 0.81 Ankle/Brachial Index 0.89 116.00 Pre-Exercise Toe Pressure 162.00 0.76 Pre-Exercise Toe/Brachial Index 1.07 FINDINGS Resting BECKY of 0.82 on the right side and 0.89 on the left side. Resting TBI of 0.76 on the right and 1.07 on the left CONCLUSIONS 1. Normal resting TBIs bilaterally. 2. Mildly diminished resting ABIs bilaterally Features suggestive of mild peripheral artery disease bilaterally Dr Giovanny Dunbar MD [facility] (Electronically Signed) Final Date: 08 January 2023 09:39 S
== END 2023-01-06 12:21 | disposition home or self-care (01) ==
LOC: RAD 12:23
PROVIDERS: PCP Family Medicine; Visit Provider Family Medicine
DX: I73.9 Peripheral vascular disease, unspecified (principal); R60.0 Localized edema
CPT/HCPCS: 93922; 93970

== ENCOUNTER 2025-04-20 15:58 | Outpatient (CLI) | payer MEDICARE, BC, SELFPAY ==
--- NOTE | 2025-04-20 16:19 | PETR_ITS ---
PROCEDURE INFORMATION: Exam: PET/CT Skull Base to Mid-thigh Exam date and time: 04/20/2025 5:02 PM Age: 69 years old Clinical indication: Abnormal findings; Not specified; Additional info: Abnormal imaging LABS AND CLINICAL REPORTS: Glucose: 99 mg/dl Treatment strategy for malignancy (PET staging): Initial Staging (PI) TECHNIQUE: Imaging protocol: Following at least four-hour fasting and following the injection of radiopharmaceutical, low dose CT images were obtained. Then, PET images were obtained. Attenuation corrected images were constructed using the CT scan. Fused images of PET and CT were reviewed. The standardized uptake values (SUV) reported below are maximum values within a region of interest, expressed in gm/ml. Exam includes orbital meatal line to mid-thigh. SUV normalization method: BodyWeight Radiopharmaceutical: 9.9 mCi F-18 FDG (Fluorodeoxyglucose), IV. Time of imaging post radiopharmaceutical administration: 44 minutes Injection site: right ac COMPARISON: 1. CT abdomen pelvis w con* [id number] 10/05/2022 8:[address] cervical spin wo con* [id number] 07/31/2019 3:26 PM FINDINGS: Brain: Visualized brain has normal physiologic uptake. Oral cavity: Avid FDG uptake at the anterior tongue with mild irregular morphology, axial image 67, shows SUV max 11.7 on axial image 70. Pharynx: No abnormal uptake. Larynx: No abnormal uptake. Lungs, pleura and trachea: No abnormal uptake. No consolidation or mass. Heart: Normal physiologic uptake. Coronary arteries: Heavy coronary artery calcification. Mediastinal space: No abnormal uptake. Liver: No abnormal uptake. Gallbladder and biliary ducts: No abnormal uptake. Pancreas: No abnormal uptake. Spleen: No abnormal uptake. Adrenal glands: No abnormal uptake. Kidneys and ureters: Normal physiologic uptake. Stomach and bowel: No abnormal uptake. Reproductive: Prostatomegaly. No abnormal uptake. Vasculature: No abnormal uptake. Moderate systemic atherosclerotic calcification without aortic aneurysm. Lymph nodes: No abnormal uptake. No lymphadenopathy in the head, neck, chest, abdomen, pelvis, and extremities. Skeleton: No abnormal uptake in the visualized axial and appendicular skeleton. Degenerative changes along the spine, acromioclavicular and sacroiliac joints. C4-C5 laminectomy changes with posterior instrumented fusion hardware. Soft tissues: No abnormal uptake in the visualized head, neck, chest, abdomen, pelvis, and extremities. METRICS: Mediastinal blood pool: SUV mean 1.6 Liver uptake: SUV mean 1.9 PET/PET skull to thigh INIT [id number] IMPRESSION: 1. Avid FDG uptake at the anterior tongue with mild irregular morphology. This may be physiologic but warrants correlation with clinical exam. 2. Additional chronic and incidental findings as above.
== END 2025-04-20 15:59 | disposition home or self-care (01) ==
PROVIDERS: PCP Family Medicine; Visit Provider Family Medicine
DX: M54.41 Lumbago with sciatica, right side (principal); M54.42 Lumbago with sciatica, left side; G89.29 Other chronic pain; R91.8 Other nonspecific abnormal finding of lung field; R94.8 Abnormal results of function studies of other organs and systems; I25.84 Coronary atherosclerosis due to calcified coronary lesion; N40.0 Benign prostatic hyperplasia without lower urinary tract symptoms; G31.89 Other specified degenerative diseases of nervous system; M96.1 Postlaminectomy syndrome, not elsewhere classified; M43.28 Fusion of spine, sacral and sacrococcygeal region
CPT/HCPCS: 78815; A9552

== ENCOUNTER 2025-06-11 12:15 | Emergency (ER) | payer MEDICARE, BC, SELFPAY ==
--- NOTE | 2025-06-11 12:18 | W.ED.GENADLT ---
HPI - General Adult General: Chief complaint: Back Pain/Injury Stated complaint: back pain - diarrhea Time Seen by Provider: 06/11/25 12:18 History of Present Illness: 69-year-old male presents emergency room with report of 100+ pound weight loss in the last year he seen his primary care doctor and he has had extensive workup including a recent PET scan which showed a area of increased uptake on the tongue otherwise no other significant findings. Patient been having back pain and spasms he said some loose stools as well no recent antibiotics no hematochezia or melena states his stool has been somewhat dark. Associated symptoms: Deny chest pain, dyspnea or rash Related Data Home Medications ?Medication ?Instructions ?Recorded ?Confirmed [place] See Rx Instructions .Route .COMPLEX 10/28/20 11/21/20 aspirin 81 mg tablet,delayed 81 mg PO DAILY 10/28/20 11/21/20 release ibuprofen 200 mg tablet 400 mg PO PRN 10/28/20 11/21/20 omega-3 fatty acids 1 cap PO BID 10/28/20 11/21/20 omeprazole 20 mg capsule,delayed 20 mg PO DAILY 10/28/20 11/21/20 release red yeast rice 600 mg tablet 600 mg PO BID 10/28/20 11/21/20 vitamin C 500 mg-multivitamin with 1 tab PO DAILY 10/28/20 11/21/20 minerals chewable tablet (Emergen-C) Previous Rx's ?Medication ?Instructions ?Recorded diclofenac sodium 75 mg 75 mg PO BID PRN pain #14 tabs 10/28/20 tablet,delayed release metoclopramide HCl 10 mg tablet 10 mg PO Q6H PRN nausea and 10/28/20 (Reglan) vomiting #20 tabs hydrocodone 5 mg-acetaminophen 325 1 tab PO BID PRN pain 15 days #30 11/21/20 mg tablet tabs ciprofloxacin HCl 500 mg tablet 500 mg PO BID #20 tabs 10/05/22 (Cipro) ondansetron 4 mg disintegrating 4 mg PO Q8H PRN nausea and 10/05/22 tablet vomiting #14 tabs tizanidine 4 mg tablet 4 mg PO Q6H PRN muscle spasticity 06/11/25 #20 tabs Allergies Allergy/AdvReac Type Severity Reaction Status Date / Time No Known Allergies Allergy Verified 10/05/22 16:38 Review of Systems Const: Denies: fever(s) or chills Card: Denies: chest pain Resp: Denies: dyspnea GI: Denies: abdominal pain : Denies: dysuria, urinary frequency or urinary urgency Musc: Denies: neck pain or back pain Skin/Breast: Denies: rash Neuro: Reports: other (No fecal incontinence no urinary retention no saddle paresthesias) PFSH ED PFSH: Family History Mother Diabetes Cancer Thyroid and Espohageal Arthritis Social History Smoking and tobacco/nicotine status: current every day tobacco/nicotine user Alcohol intake: never Lives independently: Yes Household members: none Marital status: Legally Physical Exam Const: GENERAL APPEARANCE: cooperative NUTRITIONAL APPEARANCE: underweight ORIENTATION/CONSCIOUSNESS: Yes awake, Yes oriented to person, Yes oriented to place and Yes oriented to time HENMT: COMMON NORMALS: normocephalic, atraumatic and hearing grossly normal bilaterally HEAD & SCALP: normocephalic and atraumatic Resp: COMMON NORMALS: normal respiratory effort, No retractions, No use of accessory muscles and clear to auscultation bilaterally AUSCULTATION: clear to auscultation bilaterally Cardio: COMMON NORMALS: regular rate, regular rhythm and No murmurs present (Cardio) RATE: regular rate RHYTHM: regular rhythm GI: COMMON NORMALS: Soft to palpation and No hepatosplenomegaly present AUSCULTATION: Yes normoactive bowel sounds PALPATION: Yes Soft to palpation, No Tenderness to palpation present (GI), No Guarding due to palpation present (GI) and Yes No hepatosplenomegaly present OTHER: Rectal exam Hemoccult negative. Prostate significantly enlarged no nodules Extremity: COMMON NORMALS: normal to inspection, capillary refill normal, no clubbing, cyanosis or edema, no calf tenderness and no pedal edema Neuro: SENSORIUM/ORIENTATION: Yes oriented to person, Yes oriented to place and Yes oriented to time Skin: COMMON NORMALS: no rashes or lesions noted GENERAL SKIN EXAM: no rashes or lesions noted Course Vital Signs: Vital signs: Vital Signs Temperature 97.9 F 06/11/25 12:20 Pulse Rate 85 06/11/25 16:00 Respiratory Rate 18 06/11/25 16:00 Blood Pressure 140/59 06/11/25 16:00 Pulse Oximetry 99 06/11/25 16:00 Oxygen Delivery Me thod Room Air 06/11/25 12:20 MDM - General Adult Medical Decision Making Medical decision making Social determinants: Minimal social support did have 1 friend with him in the emergency room late in the visit I reviewed the patient's medical record. I reviewed the patient's current home meds Alternate historians: None Differential diagnosis occult primary tumor, back pain electrolyte disturbance Lab Review: Labs reviewed hemoglobin stable BUN not elevated. Few red blood cells per high-power field Imaging: CT of the abdomen unremarkable Assessment of risk: Level of risk: Moderate Hospitalization considerations: Pending on results of labs and CT consideration for hospitalization. However workup was negative patient was not hospitalized Reexamination: Mild improvement of pain still having back spasms. Assessment and plan: Discharge home on tizanidine to use as needed can also use diclofenac. Rectal exam was done and was negative for occult blood. Encouraged patient to follow-up with primary care to complete workup for occult tumor particularly the findings on the PET scan. No emergent condition found at this time Medical Records PET scan PET/PET skull to thigh INIT [id number] IMPRESSION: 1. Avid FDG uptake at the anterior tongue with mild irregular morphology. This may be physiologic but warrants correlation with clinical exam. 2. Additional chronic and incidental findings as above. Lab Data 06/11/25 12:43 06/11/25 12:43 Radiology Impressions Chest X-Ray 06/11/25 12:39 IMPRESSION: 1. Pulmonary hyperinflation. No acute finding. Abdomen/Pelvis CT 06/11/25 15:11 IMPRESSION: 1. No acute findings in the abdomen or pelvis. 2. No suspicious masses or lymphadenopathy. 3. Nonspecific moderate prostatic enlargement with mass effect on the inferior wall of the urinary bladder which is otherwise unremarkable. 4. Atherosclerotic calcifications of the abdominal aorta without aneurysm. Laboratory Results WBC 8.24 10^3/uL (3.29-11.43) 06/11/25 12:43 RBC 4.95 10^6/uL (3.85-5.65) 06/11/25 12:43 Hgb 15.30 g/dL (11.27-16.99) 06/11/25 12:43 Hct 45.9 % (37-53) 06/11/25 12:43 MCV 92.7 fl (82-101) 06/11/25 12:43 MCH 30.9 pg (27-33) 06/11/25 12:43 MCHC 33.3 g/dL (30-55) 06/11/25 12:43 RDW 12.0 % (12.1-15.1) L 06/11/25 12:43 Plt Count 344 10^3/cmm (157-399) 06/11/25 12:43 MPV 8.8 fL (7.4-10.4) 06/11/25 12:43 Neut % (Auto) 65.3 % 06/11/25 12:43 Lymph % (Auto) 26.5 % 06/11/25 12:43 Haines % (Auto) 7.3 % 06/11/25 12:43 Eos % (Auto) 0.4 % 06/11/25 12:43 Baso % (Auto) 0.4 % 06/11/25 12:43 Neut # (Auto) 5.39 10^3/uL (1.8-7.7) 06/11/25 12:43 Lymph # (Auto) 2.2 10^3/uL (0.8-4.8) 06/11/25 12:43 Haines # (Auto) 0.6 10^3/uL (0.2-0.9) 06/11/25 12:43 Eos # (Auto) 0.0 10^3/uL (0.0-0.8) 06/11/25 12:43 Baso # (Auto) 0.0 10^3/uL (0.0-0.1) 06/11/25 12:43 Nucleated RBC % (auto) 0 % 06/11/25 12:43 Nucleated RBCs # 0.0 /100WBC 06/11/25 12:43 Sodium 133 mmol/L (136-145) L 06/11/25 12:43 Potassium 3.6 mmol/L (3.5-5.1) 06/11/25 12:43 Chloride 95 mmol/L (98-107) L 06/11/25 12:43 Carbon Dioxide 27 mmol/L (22-29) 06/11/25 12:43 Anion Gap 14.6 (5-19) 06/11/25 12:43 BUN 12 mg/dL (8-23) 06/11/25 12:43 Creatinine 0.4 mg/dL (0.7-1.2) L 06/11/25 12:43 GFR Calculation 214.6 mL/min (90-130) H 06/11/25 12:43 Glucose 109 mg/dL (65-115) 06/11/25 12:43 Calculated Osmolality 276 mOsm/kg (285-295) L 06/11/25 12:43 Calcium 9.8 mg/dL (8.5-10.5) 06/11/25 12:43 Total Bilirubin 0.4 mg/dL (0.15-1.2) 06/11/25 12:43 AST 26 U/L (0-40) 06/11/25 12:43 ALT 18 U/L (0-41) 06/11/25 12:43 Alkaline Phosphatase 120 U/L (40-130) 06/11/25 12:43 Creatine Kinase 50 U/L (39-308) 06/11/25 12:43 Total Protein 8.0 g/dL (6.6-8.7) 06/11/25 12:43 Albumin 4.4 g/dL (3.5-5.2) 06/11/25 12:43 Globulin 3.6 g/dL (1.3-4.6) 06/11/25 12:43 Lipase 49 U/L (13-60) 06/11/25 12:43 Urine Color Yellow (Yellow) 06/11/25 14:03 Urine Appearance Clear (CLEAR) 06/11/25 14:03 Urine pH 8.5 (5-7) A 06/11/25 14:03 Ur Specific [place] 1.012 (1.005-1.030) 06/11/25 14:03 Urine Protein Negative (Negative) 06/11/25 14:03 Urine Glucose (UA) Negative (Normal) 06/11/25 14:03 Urine Ketones Negative (Negative) 06/11/25 14:03 Urine Blood Non-haemolysed trace (Negative) 06/11/25 14:03 Urine Nitrate Negative (Negative) 06/11/25 14:03 Urine Bilirubin Negative (Negative) 06/11/25 14:03 Urine Urobilinogen 0.2 mg/dL (Negative) 06/11/25 14:03 Ur Leukocyte Esterase Negative (Negative) 06/11/25 14:03 Urine RBC 6-10 /hpf (0-2) 06/11/25 14:03 Urine WBC 0-5 /hpf (0-5) 06/11/25 14:03 Ur Squamous Epith Cells 0-5 /hpf (0-5) 06/11/25 14:03 Amorphous Sediment Not Reportable 06/11/25 14:03 Urine Bacteria None seen /hpf (NONE) 06/11/25 14:03 Hyaline Casts 0-4 /lpf H 06/11/25 14:03 All radiology interpretation(s) finalized by discharge Discharge Plan Discharge Patient Disposition: Home Clinical Impression: Back pain Condition: Stable Prescriptions: New tizanidine 4 mg tablet 4 mg PO Q6H PRN (Reason: muscle spasticity) Qty: 20 0RF Rx Instructions: do not exceed 3 doses per 24 hrs No Action hydrocodone-acetaminophen 5-325 mg tablet 1 tab PO BID PRN (Reason: pain) 15 Days Qty: 30 0RF Aspir-81 81 mg Tablet,Delayed Release (Dr/Ec) 81 mg PO DAILY ibuprofen 200 mg Tablet 400 mg PO PRN omeprazole 20 mg Capsule,Delayed Release(Dr/Ec) 20 mg PO DAILY Fish Oil Capsule 1 cap PO BID red yeast rice 600 mg Tablet 600 mg PO BID Emergen-C 500 mg Tablet,Chewable 1 tab PO DAILY [place] See Rx Instructions .ROUTE .COMPLEX Rx Instructions: pt states this was an old rx-pt states he is unsure of the mg-pt states he only took 1/2 tab last night 10/27/20 Reglan 10 mg tablet 10 mg PO Q6H PRN (Reason: nausea and vomiting) Qty: 20 2RF diclofenac sodium 75 mg tablet,delayed release (DR/EC) 75 mg PO BID PRN (Reason: pain) Qty: 14 1RF Cipro 500 mg tablet 500 mg PO BID Qty: 20 0RF ondansetron 4 mg tablet,disintegrating 4 mg PO Q8H PRN (Reason: nausea and vomiting) Qty: 14 0RF Discharge Orders: Discharge ED (Routine); Ordered 06/11/25 Ordered By: Wale Carl Referrals: Galilea Rose DO [Primary Care Provider, Family Practice] Discharge Diet: Usual diet Discharge Activity: Increase activity as tolerated Patient Instructions: Opioid Safety, Pain Management, Patient Portal & Genny Instructions Activity Restrictions/Additional Instructions: Thank you for choosing [facility] for your healthcare needs today. It is very important that you follow up as instructed or that you return to the Emergency Department should you have concerns or if your condition changes or worsens in any way. Emergency department visits are focused on emergent conditions, in some cases you may require further evaluation on an outpatient basis. You are seen in the emergency room with complaint of back pain with nausea and vomiting. He reported having the back pain for several weeks. [place] some this may be spasms. We reviewed the recent testing your primary care doctor done including the PET scan. There is nothing on the PET scan related to your back there is the finding in the oropharynx that requires further follow-up. You are discharged home with tizanidine to use as a muscle relaxer. (Please note that included in your discharge packet is information concerning opioid safety and pain management. This information is given to all patients were discharged from the ER regardless of their discharge diagnosis or the medicines they usually take or are prescribed.) Print Language: Danish Coding Level of Care Code ED Customer Retention Representative for Jim Solis
[2025-06-11 12:20] VITALS: BP 124/51; PULSE 73; RESP 18; TEMP 36.6; O2SAT 99; BMI 15.6
--- NOTE | 2025-06-11 12:39 | XR_ITS ---
WS: [id number] Exam: XR chest 1V portable [id number] Date/Time of Exam: 06/11/2025 12:39 PM Reason For Exam: dyspnea/cough Comparison 11/09/2018. Lungs are hyperinflated and clear. Normal cardiomediastinal silhouette. No pleural effusions. Degenerative change and mild dextroscoliosis of the T-spine. XR/XR chest 1V portable [id number] IMPRESSION: 1. Pulmonary hyperinflation. No acute finding.
--- OUTSIDE RECORDS SUMMARY | 2025-06-11 12:39 | XMS_ITS | Encounter Summary ---
Author Organization [facility] Address [address] [place] [address] Care Team Providers Care Estimating Manager Name Role Phone Galilea Rose DO Primary Care Provider Encounter Details Date Type Department Care Team (Late st Contact Info) Description 04/25/2025 Results Follow-Up [facility] Family Medicine [place] [address] [place] [address] Galilea Rose DO [address] [place] [address] IMG [address] SKB MDTH Social History Tobacco Use Types Packs/Day Years Used Date Smoking Tobacco: Every Day Cigarettes Passive Smoke Exposure: Current Smokeless Tobacco: Never Alcohol Use Standard Drinks/Week Comments No 0 (1 standard drink = 0.6 oz pur e alcohol) Financial Resource Strain Answer Date R ecorded How hard is it for you to pa y for the very basics like food, housing, medical care, and heating? Somewhat hard 05/21/2022 Food Insecurity Answer Date Recorded In the past 12 months, have you worried that your food would run out before you had money to buy more? Never true 05/21/2022 In the past 12 months, did y ou run out of food and didn't have money to buy more? Never true 05/21/2022 Transportation Needs Answer Date Record ed In the past 12 months, has l ack of transportation kept you from medical appointments or from getting medications? 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 Gender Identity Not on file Sexual Orientation Not on file documented as of this encounter Plan of Treatment Upcoming Encounters Date Type Department Care Team (Late st Contact Info) Description 06/13/2025 9:40 AM MEDICAL AIDES TEACHER Office Visit [facility] Medicine [place] [address] [place] [phone] Galilea Rose DO [address] [place] [phone] documented as of this encounter Visit Diagnoses Not on filedocumented in this encounter Additional Health Concerns Assessment Noted Time PHQ-9 Depression Total Score: 1 10/13/19 25 11:48 AM CDT documented as of this encounter Care Teams Estimating Manager Relationship Specialty Start Date End Date Galilea Rose DO [address] [place] [phone] PCP - General Family Practice 10/09/21 documented as of this encounter
--- OUTSIDE RECORDS SUMMARY | 2025-06-11 12:39 | XMS_ITS | Clinical Summary ---
Author Organization [facility] Address [address] [place]: Epic Prelude ADT [place] [address] Care Team Providers Care Gluing Pressman Name Role Phone MiltonLisamike Lara DO Primary Care Provider Allergies No known active allergies Medications multivitamin (DAILY-STEPHANY) tablet Take 1 Tablet by mouth daily. Active RED YEAST RICE ORAL Take by mouth. Activ e OMEGA-3 FATTY ACIDS-FISH OIL ORAL Take by mouth. Activ e tamsulosin (FLOMAX) 0.4 mg capsule TAKE 1 CAPSULE BY MOUTH ONCE DAILY 90 Capsule 4 09/19/19 25 Active escitalopram oxalate (LEXAPRO) 5 mg tablet Take 1 Tablet (5 mg) by mouth daily. 90 Tablet 4 10/13/19 25 Active potassium CHLORIDE (K-DUR,KLOR-CON M20) 20 mEq Extended Release tablet TAKE 1 TABLET BY MOUTH DAILY 100 Tablet 3 11/21/19 25 Active testosterone cypionate (DEPO-TESTOSTERO NE) 200 mg/mL OilIndications:M kristine hypogonadism ADMINISTER 1 ML(200 MG) IN THE MUSCLE EVERY 2 WEEKS 2 mL 3 02/21/20 25 Active omeprazole (PriLOSEC) 20 mg Capsule, Delayed Release(E.C.) TAKE 1 CAPSULE(20 MG) BY MOUTH TWICE DAILY 180 Capsule 3 02/21/20 25 Active predniSONE (DELTASONE) 5 mg tablet TAKE 1 TABLET(5 MG) BY MOUTH DAILY 30 Tablet 2 02/21/20 25 Active furosemide (LASIX) 40 mg tablet TAKE 1 TABLET BY MOUTH TWICE DAILY 60 Tablet 2 03/19/20 Active Syringe with Needle, Disp, (BD Luer-Angélica Syringe) 3 mL 25 gauge x 1 Syringe Use to inject testosterone 1ml IM every 14 days 10 Each 03/20/20 Active oxyCODONE-acetam inophen (PERCOCET) 10-325 mg TabletIndication s:Chronic bilateral low back pain without sciatica Take 1 Tablet by mouth 3 times daily as needed for Pain, Severe. Do not fill until 05/25/2025 Max Daily Amount: 3 Tablets 90 Tablet 05/24/20 25 Active oxyCODONE-acetam inophen (PERCOCET) 10-325 mg TabletIndication s:Chronic bilateral low back pain without sciatica Take 1 Tablet by mouth 3 times daily as needed for Pain, Severe. Do not fill until 06/24/25 Max Daily Amount: 3 Tablets 90 Tablet 05/24/20 25 Active oxyCODONE-acetam inophen (PERCOCET) 10-325 mg TabletIndication s:Chronic bilateral low back pain without sciatica Take 1 Tablet by mouth 3 times daily as needed for Pain, Severe. Do not fill until 03/25/25 Max Daily Amount: 3 Tablets 90 Tablet 02/21/20 25 025 Discontin ued(Reord er) oxyCODONE-acetam inophen (PERCOCET) 10-325 mg TabletIndication s:Chronic bilateral low back pain without sciatica Take 1 Tablet by mouth 3 times daily as needed for Pain, Severe. Do not fill until 04/24/2025 Max Daily Amount: 3 Tablets 90 Tablet 02/21/20 25 025 Discontin ued(Reord er) Active Problems Problem Noted Date Diagnosed Date Chronic pain of multiple joints 10/15/2024 Male hypogonadism 03/27/2024 Gastroesophageal reflux disease without esophagi tis 03/27/2024 Benign prostatic hyperplasia without lower urinary tract symptoms 03/27/2024 Severe protein-calorie malnutrition 02/14/2023 Atherosclerosis of both carotid arteries 022 Peripheral vascular disease 05/24/2022 Stenosis of cervical spine with myelopathy 05/24 Cigarette smoker 05/24/2022 Wheelchair dependent 05/24/2022 Chronic obstructive pulmonary disease 05/24/2022 Weakness of both lower extremities 08/03/2021 Chronic bilateral low back pain without sciatica 07/13/2021 Kidney pain 07/13/2021 History of colon polyps 07/13/2021 History of bleeding ulcers 07/13/2021 Mixed hyperlipidemia 07/13/2021 Neck pain 06/13/2021 Generalized abdominal pain 06/13/2021 Duodenal ulcer disease 08/29/2013 Encounters Date Type Department Care Team Description 05/24/2025 Refill [facility] [address] [place] [facility] [place] [phone] Galilea Rose DO Chronic bilateral low back pain without sciatica 05/08/2025 External Device Data [facility] ABSTRACTION Provider, Abstract 05/02/2025 External Device Data [place] ABSTRACTION Provider, Abstract 04/25/2025 Results Follow-Up [facility] [address] [place] [facility] [place] [phone] Galilea Rose DO PET BONE IMG W CT SKB MD 04/24/2025 Orders Only [facility] Health Information Management [place] [address] [place] [address] Galilea Rose DO 04/23/2025 Refill [facility] [address] [place] [facility] [place] [phone] Galilea Rose DO 03/23/2025 Refill [facility] [address] [place] [facility] [place] [phone] Galilea Rose DO Chronic bilateral low back pain without sciatica 03/20/2025 11:00 AM CDT Office Visit [facility] [address] [place] [phone] Galilea Rose DO Panlobular emphysema (CMS/HCC) (Primary Dx); Stenosis of cervical spine with myelopathy (CMS/HCC); Mixed hyperlipidemia; Wheelchair dependent; Gastroesophageal reflux disease without esophagitis; Severe protein-calorie malnutrition; Male hypogonadism; Benign prostatic hyperplasia without lower urinary tract symptoms; Chronic pain of multiple joints; Weakness of both lower extremities; Chronic bilateral low back pain without sciatica; Peripheral vascular disease; Atherosclerosis of both carotid arteries; Cigarette smoker 03/19/2025 Refill [facility] Medicine [place] [address] [place] [address] Galilea Rose DO 03/13/2025 External Device Data [place] ABSTRACTION Provider, Abstract from Last 3 Months Family History Medical History Relation Name Comments Colon Cancer Neg Hx Social History Tobacco Use Types Packs/Day Years Used Date Smoking Tobacco: Every Day Cigarettes Passive Smoke Exposure: Current Smokeless Tobacco: Never Tobacco Cessation:Ready to Q uit: No; Counseling Given: Yes Alcohol Use Standard Drinks/Week Comments No 0 [...] on file 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 Gender Identity Not on file Sexual Orientation Not on file Last Filed Vital Signs Vital Sign Reading Time Taken Comments Blood Pressure 120/60 03/20/2025 11:16 AM CDT Pulse 57 03/20/2025 11:16 AM CDT Temperature 36.8 C (98.3 F) 03/20/2025 11:16 AM CDT Respiratory Rate 18 03/27/2024 2:43 PM CDT Oxygen Saturation 95% 03/20/2025 11:16 AM CDT Inhaled Oxygen Concentration - - Weight 46.4 kg (102 lb 4 oz) 03/20/2025 11:16 AM CDT Height 170.2 cm (5' 7 ) 03/20/2025 11:16 AM CDT stated Body Mass Index 16.01 03/20/2025 11:16 AM CDT Plan of Treatment Upcoming Encounters Date Type Department Care Team (Late st Contact Info) Description 06/13/2025 9:40 AM DISTILLERY LABORER Office Visit [facility] [address] [place] [phone] Galilea Rose DO [address] [place] [address] Health Maintenance Due Date Last Done Comments DTAP/TDAP/TD VACCINES (1 - Tdap) 1976 PNEUMOCOCCAL VACCINE 50+ YEA RS (1 of 2 - PCV) 1976 FIT-DNA Q 3 years 2002 FIT/FOBT Q 1 year 2002 Flex Sig/CT Colonography Q 5 years 2002 RSV VACCINE (60+ or ) (1 - Risk 50-74 years 1-dose series) 2007 ZOSTER VACCINE (1 of 2) 2007 Abdominal Aortic Aneurysm (A AA) Screening 2022 INFLUENZA VACCINE (#1) 2025 05/21/2022, 2020 Traditional Medicare (ACO) A nnual Wellness Visit 10/13/2025 10/12/2024, 06/09/2023, 05/21/2022 COLORECTAL SCREENING 10/17/2031 10/16/2021 Colorectal Cancer Screening 10/17/2031 Procedures Procedure Name Priority Date/Time Associated Diagnosis Comments PET BONE IMG W CT SKL BSE MID THG Routine 04/20/2025 10:58 AM CDT from Last 3 Months Results * PET BONE IMG W CT SKB MDTH (04/20/2025 10:58 AM CDT) Anatomical Region Laterality Modality Positron Emissio n Tomography (PET) us Galilea Rose DO PE ORDERABLES Final Resul t from Last 3 Months Insurance MEDICARE PART A AND B BCBS SUPP Advance Directives For more information, please contact: [phone] * Full Code (Latest Code Status on File) Date Activated Date Inactivated Comments 10/16/2021 12:02 PM 10/16/2021 4:55 PM Care Teams Gluing Pressman Relationship Specialty Start Date End Date Galilea Rose DO [address] [place] [address] PCP - General Family Practice 10/09/21
--- OUTSIDE RECORDS SUMMARY | 2025-06-11 12:39 | XMS_ITS | Clinical Summary ---
Author Organization [facility] Mateusz desai Ifeanyi Address [address] [place] [address] Phone Care Team Providers Care Web Master Name Role Phone Unavailable Primary Care Provider Unavailabl e Allergies No known active allergies Medications lansoprazole (PREVACID) 30 mg Oral CpDR Take 1 Cap by mouth daily. 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 Gender Identity Not on file Sexual Orientation Not on file Last Filed Vital Signs Vital Sign Reading Time Taken Comments Blood Pressure 113/52 02/10/2012 7:46 PM CDT Pulse 79 02/10/2012 7:46 PM CDT Temperature 36.6 C (97.8 F) 02/10/2012 6:46 PM CDT Respiratory Rate 14 02/10/2012 7:46 PM CDT Oxygen Saturation 98% 02/10/2012 7:46 PM CDT Inhaled Oxygen Concentration - - Weight 63.5 kg (140 lb) 02/10/2012 6:52 PM CDT Height 170.2 cm (5' 7 ) 02/10/2012 6:52 PM CDT Body Mass Index 21.93 02/10/2012 6:52 PM CDT Plan of Treatment Health Maintenance Due Date Last Done Comments DTAP/TDAP/TD VACCINES (1 - Tdap) 1976 COLORECTAL SCREENING 2002 Colorectal Cancer Screening 2002 FIT-DNA Q 3 years 2002 FIT/FOBT Q 1 year 2002 Flex Sig/CT Colonography Q 5 years 2002 PNEUMOCOCCAL VACCINE 50+ YEARS (1 of 1 - PCV) 08/06/19 08 ZOSTER VACCINE (1 of 2) 2007 INFLUENZA VACCINE (#1) 2025 RSV VACCINE (60+ or ) (1 - 1-dose 75+ series) 2032
[2025-06-11 12:52] LABS: Hematocrit 45.9 % (37-53); Hemoglobin 15.30 g/dL (11.27-16.99); Mean Corpuscular HGB Conc 33.3 g/dL (30-55); Mean Corpuscular Hemoglobin 30.9 pg (27-33); Mean Corpuscular Volume 92.7 fl (82-101); Nucleated Red Blood Cells % 0 %; Platelet Count 344 10^3/cmm (157-399); Red Blood Count 4.95 10^6/uL (3.85-5.65); White Blood Count 8.24 10^3/uL (3.29-11.43)
[2025-06-11 13:08] LABS: Alanine Aminotransferase 18 U/L (0-41); Albumin Level 4.4 g/dL (3.5-5.2); Alkaline Phosphatase 120 U/L (40-130); Anion Gap 14.6 (5-19); Aspartate Amino Transferase 26 U/L (0-40); Blood Urea Nitrogen 12 mg/dL (8-23); Calcium 9.8 mg/dL (8.5-10.5); Carbon Dioxide 27 mmol/L (22-29); Chloride 95 mmol/L (98-107); Creatinine Clr Calc Pharmacy 57.4862; Globulin 3.6 g/dL (1.3-4.6); Glucose 109 mg/dL (65-115); Lipase 49 U/L (13-60); Osmolality Calculated 276 mOsm/kg (285-295); Potassium 3.6 mmol/L (3.5-5.1); Sodium 133 mmol/L (136-145); Total Protein 8.0 g/dL (6.6-8.7)
--- NOTE | 2025-06-11 13:28 | ECG_ITS ---
[facility] Test Date: 2025-06-11 Pat Name: Bowen Diaz Department: Room: Gender: Male [employer]: : 1955 Requested By: Wale Lara Order Number: [id number] Rikki MD: Giovanny Dunbar M.D. Measurements Intervals [place]vid Rate: 62 P: 75 RI: 142 QRS: -21 QRSD: 81 T: -9 QT: 422 QTc: 430 Interpretive Statements SINUS RHYTHM POSSIBLE LEFT ATRIAL ENLARGEMENT [-0.1mV P-WAVE IN V1/V2] No previous ECG available for comparison Electronically Signed On 06-12-2025 19:01:57 [employer] by Giovanny Dunbar M.D. [email or web address]
[2025-06-11 14:15] LABS: Glucose Urine UA Negative (Normal); Nitrate Urine Negative (Negative); Specific Gravity, Urine 1.012 (1.005-1.030)
[2025-06-11 14:17] LABS: Add Urine Microscopic? YES
[2025-06-11] MEDS: morphine 4 mg/mL SDV 1 mL 2 MG IVP ×2 (14:47→15:45)
--- NOTE | 2025-06-11 15:11 | CTR_ITS ---
PROCEDURE INFORMATION: Exam: CT Abdomen And Pelvis With Contrast Exam date and time: 06/11/2025 3:20 PM Age: 69 years old Clinical indication: Abdominal pain; Additional info: Abd pain TECHNIQUE: Imaging protocol: Computed tomography of the abdomen and pelvis with contrast. Radiation optimization: All CT scans at this facility use at least one of these dose optimization techniques: automated exposure control; mA and/or kV adjustment per patient size (includes targeted exams where dose is matched to clinical indication); or iterative reconstruction. Contrast material: [id number]; Contrast volume: 100 ml; Contrast route: INTRAVENOUS (IV); COMPARISON: PT PET skull to thigh INIT [id number] 04/20/2025 5:02 PM RADIATION DOSE METRICS: Total DLP (mGy-cm): 289.77 FINDINGS: Liver: Normal. No mass. Gallbladder and biliary ducts: Gallbladder unremarkable. No significant biliary ductal dilatation. Pancreas: Normal. No ductal dilation. Spleen: Normal. No splenomegaly. Adrenal glands: Normal. No mass. Kidneys and ureters: No suspicious renal lesions. No hydronephrosis or nephrolithiasis. No ureteral stones. Stomach and bowel: Normal caliber of the bowel without evidence of obstruction. No focal bowel wall thickening or inflammation. Appendix: No evidence of appendicitis. Intraperitoneal space: Unremarkable. No free air. No significant fluid collection. Vasculature: Atherosclerotic calcifications of the abdominal aorta without aneurysm. Lymph nodes: Unremarkable. No enlarged lymph nodes. Urinary bladder: Mass effect on the inferior wall of the urinary bladder. Urinary bladder otherwise unremarkable. Reproductive: Nonspecific moderate prostatic enlargement with mass effect on the inferior wall of the urinary bladder which is otherwise unremarkable. Bones/joints: No significant focal osseous lesions. No fractures or malalignment. Osteopenia. Advanced degenerative disc changes at L3-L4 and L4-L5 Soft tissues: Unremarkable. CT/CT abdomen pelvis w con* [id number] IMPRESSION: 1. No acute findings in the abdomen or pelvis. 2. No suspicious masses or lymphadenopathy. 3. Nonspecific moderate prostatic enlargement with mass effect on the inferior wall of the urinary bladder which is otherwise unremarkable. 4. Atherosclerotic calcifications of the abdominal aorta without aneurysm.
[2025-06-11] MEDS: iohexol 350 mg/mL 500 mL Btl (per mL) IV (15:23)
[2025-06-11] MEDS: diphenhydrAMINE 50 mg/mL SDV 1mL 25 MG IVP (15:45)
[2025-06-11 16:00] VITALS: BP 140/59; PULSE 85; RESP 18; O2SAT 99
== END 2025-06-11 16:36 | disposition home or self-care (01) ==
PROVIDERS: Emergency Provider Family Medicine; PCP Family Medicine
DX: M54.9 Dorsalgia, unspecified (principal); Z72.0 Tobacco use
CPT/HCPCS: 36415; 71045; 74177; 80053; 81001; 82550; 83690; 85025; 93005; 96361; 96374; 96375; 96376; 99285; J1200; J1885; J2270; J7030